=== PATIENT | male | born 1955 | race African-American/Black ===

== ENCOUNTER 2017-12-19 21:49 | Inpatient (IN) | payer OTHER, MEDICAID, MEDICARE ==
[~2017-12-19] VITALS: Ht 185.4 cm; Wt 128.7 kg
[~2017-12-19 21:49] MED LIST: GLUCTAB PO; LORTA5 PO; NAPR500 PO; [UNRECOGNIZED DRUG - OTHER]
[2017-12-19 22:12] VITALS: BP 143/56; PULSE 102; RESP 22; TEMP 98.3; O2SAT 77
[2017-12-19 22:30] VITALS: BP 133/77; PULSE 90; RESP 24; O2SAT 97
[2017-12-19] MEDS ORDERED: FUROSEMIDE 20 MG/2 ML VIAL IV PUSH ONE (22:45)
[2017-12-19] MEDS ORDERED: FUROSEMIDE 40 MG TAB PO ONE (23:15)
--- NOTE | 2017-12-19 23:27 | RADRPT ---
EXAM DATE/TIME: 12/19/2017 23:09 [place] COMPARISON: No previous studies available for comparison. INDICATIONS : Short of breath. MEDICAL HISTORY : Diabetes mellitus type II. Hypertension Hypercholesterolemia. SURGICAL HISTORY : None. ENCOUNTER: Initial ACUITY: 1 week PAIN SCORE: 0/10 LOCATION: Bilateral chest FINDINGS: Slight cardiomegaly seen. Lungs are clear. CONCLUSION: Slight cardiomegaly. Letty Duvall MD on December 19, 2017 at 23:25 Board Certified Radiologist. This report was verified electronically.
[2017-12-19 23:39] LABS: ALKALINE PHOSPHATASE 85 U/L (45-117); TOTAL BILIRUBIN ADULT 0.8 MG/DL (0.2-1.0); TOTAL PROTEIN 7.7 GM/DL (6.4-8.2); TROPONIN I 0.15 NG/ML (0.02-0.05)
[2017-12-19 23:50] LABS: ALBUMIN 3.2 GM/DL (3.4-5.0); ALT (GPT) 15 U/L (12-78); AST (GOT) 34 U/L (15-37); BICARBONATE 33.2 MEQ/L (21.0-32.0); BLOOD UREA NITROGEN 14 MG/DL (7-18); CHLORIDE 103 MEQ/L (98-107); CREATININE 1.16 MG/DL (0.60-1.30); GLOMERULAR FILTRATION RATE 77 ML/MIN (>89); GLUCOSE,RANDOM 84 MG/DL (74-106); SODIUM (NA) 139 MEQ/L (136-145)
[2017-12-20] VITALS: BP 134/79; PULSE 94; RESP 20; O2SAT 97
[2017-12-20 00:02] LABS: AUTOMATED NEUTROPHIL # 3.6 TH/MM3 (1.8-7.7); BASOPHIL % 0.9 % (0.0-2.0); EOSINOPHIL # 0.1 TH/MM3 (0-0.4); EOSINOPHIL % 1.3 % (0.0-4.0); HEMATOCRIT 34.5 % (39.0-51.0); HEMOGLOBIN 10.5 GM/DL (13.0-17.0); LYMPH % 19.9 % (9.0-44.0); LYMPHOCYTE # 1.1 TH/MM3 (1.0-4.8); MEAN CELL VOLUME 72.9 FL (80.0-100.0); MEAN CORPUSCULAR HEMOGLOBIN 22.3 PG (27.0-34.0); MEAN CORPUSCULAR HGB CONC 30.6 % (32.0-36.0); MEAN PLATELET VOLUME 9.6 FL (7.0-11.0); MONO % 12.2 % (0.0-8.0); MONOCYTE # 0.7 TH/MM3 (0-0.9); NEUT % 65.7 % (16.0-70.0); PLATELET COUNT 150 TH/MM3 (150-450); RED BLOOD COUNT 4.73 MIL/MM3 (4.50-5.90); RED CELL DISTRIBUTION WIDTH 22.2 % (11.6-17.2); WHITE BLOOD COUNT 5.5 TH/MM3 (4.0-11.0)
[2017-12-20 02:00] VITALS: BP 139/84; PULSE 92; RESP 16; O2SAT 96
[2017-12-20 03:15] LABS: BILIRUBIN, URINE NEG (NEG); BLOOD, URINE NEG (NEG); GLUCOSE,URINE NEG (NEG); KETONE, URINE NEG (NEG); MUCUS URINE FEW /lpf (OCC); NITRITE,URINE NEG (NEG); URINE COLOR LIGHT-YELLOW (YELLW/STRAW); URINE LEUKOCYTE ESTERASE NEG (NEG)
[2017-12-20] MEDS ORDERED: ASPIRIN 81 MG CHEW TAB CHEW ONE (03:30)
[2017-12-20] MEDS ORDERED: NALOXONE HCL 0.4 MG/ML AMP IV PUSH PRN (04:15)
[2017-12-20] MEDS ORDERED: SODIUM CHLORIDE 0.9% FLUSH 10 ML FLUSH IV FLUSH PRN (04:15)
--- NOTE | 2017-12-20 04:18 | PD ---
HPI Chief Complaint: Edema Time Seen by Provider: 22:17 Travel History International Travel<30 days: No Contact w/Intl Traveler<30days: No Traveled to known affect area: No History of Present Illness HPI Patient is a 62-year-old male. Patient comes in the ER complaining that he has had shortness of breath and swelling of his lower extremities. He has been on Lasix for years however when he went to the pharmacy to refill his 40 mg twice daily they said that his doctor would not refill it until he comes in to have more tests. Patient says he is on a fixed income and cannot afford to see the doctor but he can only barely afford his medications. For a week he has not taken any Lasix and he feels short of breath orthopnea he cannot lie flat his ankles he says are much more swollen and he is deciding at triage to 80% on room air. Patient is placed on 3 L nasal cannula and is satting 97 he is in no apparent distress when I enter the exam room [facility] Past Medical History Arthritis: Yes Autoimmune Disease: Yes (ARTHRITIS) Congestive Heart Failure: Yes Diabetes: Yes Patient Takes Glucophage: No Diminished Hearing: No Hypertension: Yes Past Surgical History Surgical History: No Previous Surgery Other Surgery: Yes Social History Alcohol Use: No Tobacco Use: No Substance Use: No Allergies-Medications (Allergen,Severity, Reaction): Coded Allergies: No Known Allergies (Verified Allergy, Unknown, 12/20/17) Reported Meds & Prescriptions Reported Meds & Active Scripts Active Naprosyn (Naproxen) 500 Mg Tab 500 Mg PO BIDPRN Lortab 5/325 Tab (Hydrocodone-Acetaminophen) 1 Tab Tab 1 Tab PO Q4-6HPRN Reported [Blodd Pressure Meds] Glucophage (Metformin HCl) 500 Mg Tab 1,000 Mg PO BID Review of Systems Except as stated in HPI: all other systems reviewed are Neg Cardiovascular: No: Chest Pain or Discomfort, Palpitations Respiratory: Positive: Shortness of Breath Physical Exam Narrative GENERAL: Patient is sitting upright seems to have orthopnea he has wheezing sound diffusely in all lung reynolds possible cardiac asthma SKIN: Warm and dry. HEAD: Atraumatic. Normocephalic. EYES: Pupils equal and round. No scleral icterus. No injection or drainage. ENT: No nasal bleeding or discharge. Mucous membranes pink and moist. NECK: Trachea midline. No JVD. CARDIOVASCULAR: Regular rate and rhythm. RESPIRATORY: No accessory muscle use. Clear to auscultation. Breath sounds equal bilaterally. GASTROINTESTINAL: Abdomen soft, non-tender, nondistended. Hepatic and splenic margins not palpable. MUSCULOSKELETAL: Extremities lower extremities have pedal edema 1+ bilateral.. NEUROLOGICAL: Awake and alert. No obvious cranial nerve deficits. Motor grossly within normal limits. Five out of 5 muscle strength in the arms and legs. Normal speech. PSYCHIATRIC: Appropriate mood and affect; insight and judgment normal. Data Data Last Documented VS Vital Signs Date Time Temp Pulse Resp B/P (MAP) Pulse Ox O2 Delivery O2 Flow Rate FiO2 12/20/17 02:00 92 16 139/84 (102) 96 Nasal Cannula 2.00 12/19/17 22:12 98.3 Orders Orders Complete Blood Count With Diff (12/19/17 22:33) Comprehensive Metabolic Panel (12/19/17 22:33) Troponin I (12/19/17 22:33) B-Type Natriuretic Peptide (12/19/17 22:33) Urinalysis - C+S If Indicated (12/19/17 22:33) Chest, Pa & Lat (12/19/17 22:33) Furosemide Inj (Lasix Inj) (12/19/17 22:45) Furosemide (Lasix) (12/19/17 23:15) Aspirin Chew (Aspirin Chew) (12/20/17 03:30) Troponin I (12/20/17 03:20) Admit Order (Ed Use Only) (12/20/17 04:05) Place In Observation (12/20/17 ) Vital Signs (Adult) Q4H (12/20/17 04:05) Activity Oob With Assistance (12/20/17 04:05) Adjunct Sociology Professor / Telemetry .CONTINUOUS (12/20/17 04:05) Intake + Output MELISSA.QSHIFT (12/20/17 04:05) Diet Heart Healthy (12/20/17 Breakfast) Sodium Chloride 0.9% Flush (Ns Flush) (12/20/17 04:15) Sodium Chloride 0.9% Flush (Ns Flush) (12/20/17 09:00) Basic Metabolic Panel (Bmp) (12/21/17 06:00) Complete Blood Count With Diff (12/21/17 06:00) Creatine Kinase (Cpk) (12/20/17 06:00) Creatine Kinase (Cpk) (12/20/17 12:00) Troponin I (12/20/17 06:00) Troponin I (12/20/17 12:00) Electrocardiogram (12/20/17 04:05) Electrocardiogram (12/20/17 10:05) Pt Request For Service (12/20/17 04:05) Case Management Consult (12/20/17 04:05) Naloxone Inj (Narcan Inj) (12/20/17 04:15) Echo 2d Comp With Doppler (12/20/17 ) Furosemide Inj (Lasix Inj) (12/20/17 09:00) Labs Laboratory Tests Test 12/19/17 23:00 12/19/17 23:50 12/20/17 02:30 12/20/17 03:38 Blood Urea Nitrogen 14 MG/DL Creatinine 1.16 MG/DL Random Glucose 84 MG/DL Total Protein 7.7 GM/DL Albumin 3.2 GM/DL Calcium Level 8.0 MG/DL Alkaline Phosphatase 85 U/L Aspartate Amino Transf (AST/SGOT) 34 U/L Alanine Aminotransferase (ALT/SGPT) 15 U/L Total Bilirubin 0.8 MG/DL Sodium Level 139 MEQ/L Potassium Level 5.3 MEQ/L Chloride Level 103 MEQ/L Carbon Dioxide Level 33.2 MEQ/L Anion Gap 3 MEQ/L Estimat Glomerular Filtration Rate 77 ML/MIN Troponin I 0.15 NG/ML White Blood Count 5.5 TH/MM3 Red Blood Count 4.73 MIL/MM3 Hemoglobin 10.5 GM/DL Hematocrit 34.5 % Mean Corpuscular Volume 72.9 FL Mean Corpuscular Hemoglobin 22.3 PG Mean Corpuscular Hemoglobin Concent 30.6 % Red Cell Distribution Width 22.2 % Platelet Count 150 TH/MM3 Mean Platelet Volume 9.6 FL Neutrophils (%) (Auto) 65.7 % Lymphocytes (%) (Auto) 19.9 % Monocytes (%) (Auto) 12.2 % Eosinophils (%) (Auto) 1.3 % Basophils (%) (Auto) 0.9 % Neutrophils # (Auto) 3.6 TH/MM3 Lymphocytes # (Auto) 1.1 TH/MM3 Monocytes # (Auto) 0.7 TH/MM3 Eosinophils # (Auto) 0.1 TH/MM3 Basophils # (Auto) 0.0 TH/MM3 CBC Comment DIFF FINAL Differential Comment B-Type Natriuretic Peptide 496 PG/ML Urine Color LIGHT-YELLOW Urine Turbidity CLEAR Urine pH 5.0 Urine Specific [place] 1.006 Urine Protein NEG mg/dL Urine Glucose (UA) NEG mg/dL Urine Ketones NEG mg/dL Urine Occult Blood NEG Urine Nitrite NEG Urine Bilirubin NEG Urine Urobilinogen LESS THAN 2.0 MG/DL Urine Leukocyte Esterase NEG Urine RBC LESS THAN 1 /hpf Urine WBC 1 /hpf Urine Mucus FEW /lpf Microscopic Urinalysis Comment CULT NOT INDICATED MDM Medical Decision Making Medical Screen Exam Complete: Yes Emergency Medical Condition: Yes Interpretation(s) Chest x-ray shows diffuse interstitial edema bilaterally with cephalization. EKG is normal sinus rhythm at a rate of 95 there is no ectopy and there is no ST segment elevations nor depressions Differential Diagnosis Differential diagnosis includes CHF versus COPD versus ischemic arrhythmia leading to flash pulmonary edema versus cardiac asthma versus bronchitis fluid overload versus failure Narrative Course Chest x-ray to ca appears to be diffuse interstitial edema. However the radiologist reads it as clear. His BNP is 495 patient is given 40 p.o. of Lasix and diuresis over a liter of urine over the next 3 hours. He is having CHF exacerbation he is admitted diuresed his troponin comes back at 0.15 possibly had an ischemic event that led to his arrhythmia that could have led to increased pulmonary edema Diagnosis Primary Impression: CHF (congestive heart failure) Qualified Codes: I50.9 - Heart failure, unspecified Additional Impression: Troponin level elevated Admitting Information Admitting Physician Requests: Admit Cam Hernández MD Dec 20, 2017 04:18
[2017-12-20] MEDS ORDERED: FURO1TAB62 PO (05:05)
[2017-12-20 07:30] VITALS: BP 142/81; PULSE 97; RESP 20; TEMP 98.3; O2SAT 96
[2017-12-20 07:36] LABS: TROPONIN I 0.14 NG/ML (0.02-0.05)
[2017-12-20] MEDS ORDERED: GABA300C5 PO (08:50)
[2017-12-20] MEDS ORDERED: AMLO10 PO (08:50)
[2017-12-20] MEDS ORDERED: LOVA40TA PO (08:50)
[2017-12-20] MEDS ORDERED: ZANT150T2 PO (08:50)
[2017-12-20] MEDS ORDERED: JANU50TA8 PO (08:50)
[2017-12-20] MEDS ORDERED: PERC10TA27 PO (08:50)
[2017-12-20] MEDS ORDERED: ASPI-516 PO (08:50)
[2017-12-20] MEDS ORDERED: LISI-515 PO (08:50)
[2017-12-20] MEDS: FUROSEMIDE 40 MG/4 ML VIAL IV PUSH SCH ×2 (08:53→17:00)
[2017-12-20] MEDS: SODIUM CHLORIDE 0.9% FLUSH 10 ML FLUSH IV FLUSH SCH ×2 (08:53→20:28)
[2017-12-20 10:25] VITALS: BP 138/85; PULSE 86; RESP 20; TEMP 97.8; O2SAT 97
[2017-12-20 12:54] LABS: TROPONIN I 0.14 NG/ML (0.02-0.05)
[2017-12-20 13:00] VITALS: BP 138/91; PULSE 93; RESP 18; TEMP 98.3; O2SAT 95
[2017-12-20] MEDS ORDERED: hydrALAZINE HCL 25 MG TAB PO PRN (14:15)
[2017-12-20] MEDS ORDERED: DEXTROSE 50% IN WATER 50 ML VIAL(D50) IV PUSH PRN (14:15)
[2017-12-20] MEDS ORDERED: RESP: ALBUTEROL 2.5 MG/IPRATROPIUM 0.5 MG NEB (PRN) NEB (14:15)
[2017-12-20] MEDS ORDERED: GLUCAGON 1 MG/ML VIAL OTHER PRN (14:15)
--- NOTE | 2017-12-20 14:23 | HHI.HP ---
[facility] Jacob Alcaraz MD Admission Diagnosis CHF Diagnoses: (1) Diabetes mellitus with neuropathy (2) Pain syndrome, chronic (3) Hyperkalemia (4) Diabetes mellitus, type 2 (5) Benign hypertension (6) Hyperlipidemia (7) CHF exacerbation (8) Troponin level elevated Chief Complaint: Shortness of breath along with increase weight along with bilateral lower extremity edema Travel History International Travel<30 Days: No Contact w/Intl Traveler <30 Da: No Traveled to Known Affected Are: No History of Present Illness 62-year-old male with a history of diabetes type 2, hypertension, hyperlipidemia, congestive heart failure recently to the ED for evaluation of worsening shortness of breath without any associated chest pain, severe bilateral lower extremities edema along with 10 pounds weight gain over the past 10 days. Patient also reports orthopnea. Patient states, is spinning out of his Lasix over the past 10 days. He endorses nonproductive cough. Currently denies any GI bleed Review of Systems Except as stated in HPI: all other systems reviewed are Neg Past Family Social History Past Medical History Diabetes type 2 Congestive heart failure Hyperlipidemia Hypertension Diabetic neuropathy Chronic pain syndrome Past Surgical History Hemorrhoidectomy Reported Medications See EMR Allergies: Coded Allergies: No Known Allergies (Verified Allergy, Unknown, 12/20/17) Family History History positive for diabetes type 2 Father from complication of CVA Mother from complication of [place] Social History He currently denies tobacco, alcohol or illicit drug intake Physical Exam Vital Signs Vital Signs Date Time Temp Pulse Resp B/P (MAP) Pulse Ox O2 Delivery O2 Flow Rate FiO2 12/20/17 10:25 97.8 86 20 138/85 (102) 97 Nasal Cannula 2.00 12/20/17 07:30 96 20 96 Nasal Cannula 2.00 12/20/17 07:30 98.3 97 20 142/81 (101) 96 Nasal Cannula 2.00 12/20/17 02:00 92 16 139/84 (102) 96 Nasal Cannula 2.00 12/20/17 00:00 94 20 134/79 (97) 97 Nasal Cannula 2.00 12/19/17 22:30 24 97 Nasal Cannula 2.00 12/19/17 22:30 90 24 133/77 (95) 97 Nasal Cannula 2.00 12/19/17 22:12 98.3 102 22 143/56 (85) 77 Physical Exam GENERAL: This is a well-nourished, well-developed patient, in no apparent distress. SKIN: No rashes, ecchymoses or lesions. Cool and dry. HEAD: Atraumatic. Normocephalic. No temporal or scalp tenderness. EYES: Pupils equal round and reactive. Extraocular motions intact. No scleral icterus. No injection or drainage. ENT: Nose without bleeding, purulent drainage or septal hematoma. Throat without erythema, tonsillar hypertrophy or exudate. Uvula midline. Airway patent. NECK: Trachea midline. No JVD or lymphadenopathy. Supple, nontender, no meningeal signs. CARDIOVASCULAR: Regular rate and rhythm without murmurs, gallops, or rubs. RESPIRATORY: Clear to auscultation. Breath sounds equal bilaterally. No wheezes , rales, or rhonchi. GASTROINTESTINAL: Abdomen soft, non-tender, nondistended. No hepato-splenomegaly , or palpable masses. No guarding. MUSCULOSKELETAL: Extremities without clubbing, cyanosis; +2 edema BLE. No joint tenderness, effusion, or edema noted. No calf tenderness. Negative Homans sign bilaterally. NEUROLOGICAL: Awake and alert. Cranial nerves II through XII intact. Motor and sensory grossly within normal limits. Five out of 5 muscle strength in all muscle groups. Normal speech. Laboratory Laboratory Tests Test 12/19/17 23:00 12/19/17 23:50 12/20/17 02:30 12/20/17 03:38 Blood Urea Nitrogen 14 Creatinine 1.16 Random Glucose 84 Total Protein 7.7 Albumin 3.2 Calcium Level 8.0 Alkaline Phosphatase 85 Aspartate Amino Transf (AST/SGOT) 34 Alanine Aminotransferase (ALT/SGPT) 15 Total Bilirubin 0.8 Sodium Level 139 Potassium Level 5.3 Chloride Level 103 Carbon Dioxide Level 33.2 Anion Gap 3 Estimat Glomerular Filtration Rate 77 Troponin I 0.15 0.15 White Blood Count 5.5 Red Blood Count 4.73 Hemoglobin 10.5 Hematocrit 34.5 Mean Corpuscular Volume 72.9 Mean Corpuscular Hemoglobin 22.3 Mean Corpuscular Hemoglobin Concent 30.6 Red Cell Distribution Width 22.2 Platelet Count 150 Mean Platelet Volume 9.6 Neutrophils (%) (Auto) 65.7 Lymphocytes (%) (Auto) 19.9 Monocytes (%) (Auto) 12.2 Eosinophils (%) (Auto) 1.3 Basophils (%) (Auto) 0.9 Neutrophils # (Auto) 3.6 Lymphocytes # (Auto) 1.1 Monocytes # (Auto) 0.7 Eosinophils # (Auto) 0.1 Basophils # (Auto) 0.0 CBC Comment DIFF FINAL Differential Comment B-Type Natriuretic Peptide 496 Urine Color LIGHT-YELLOW Urine Turbidity CLEAR Urine pH 5.0 Urine Specific [place] 1.006 Urine Protein NEG Urine Glucose (UA) NEG Urine Ketones NEG Urine Occult Blood NEG Urine Nitrite NEG Urine Bilirubin NEG Urine Urobilinogen LESS THAN 2.0 Urine Leukocyte Esterase NEG Urine RBC LESS THAN 1 Urine WBC 1 Urine Mucus FEW Microscopic Urinalysis Comment CULT NOT INDICATED Test 12/20/17 06:00 12/20/17 12:00 Total Creatine Kinase 100 106 Troponin I 0.14 0.14 Result Diagram: 12/19/17 2350 12/19/17 2300 Imaging Last Impressions Chest X-Ray 12/19/172232 Signed Impressions: Service Date/Time: December 23:09 - CONCLUSION: Slight cardiomegaly. Letty Duvall MD Septic Shock Reassessment Septic shock perfusion: reassessment completed Caprini VTE Risk Assessment Caprini VTE Risk Assessment: Mod/High Risk (score >= 2) Caprini Risk Assessment Model Point Value = 1 Point Value = 2 Point Value = 3 Point Value = 5 Age 41-60 Minor surgery BMI > 25 kg/m2 Swollen legs Varicose veins or History of unexplained or recurrent spontaneous Oral contraceptives or hormone replacement Sepsis (< 1 month) Serious lung disease, including pneumonia (< 1 month) Abnormal pulmonary function Acute myocardial infarction Congestive heart failure (< 1 month) History of inflammatory bowel disease Medical patient at bed rest Age 61-74 Arthroscopic surgery Major open surgery (> 45 min) Laparoscopic surgery (> 45 min) Malignancy Confined to bed (> 72 hours) Immobilizing plaster cast Central venous access Age >= 75 History of VTE Family history of VTE Factor V Leiden Prothrombin [id number] Lupus anticoagulant Anticardiolipin antibodies Elevated serum homocysteine Heparin-induced thrombocytopenia Other congenital or acquired thrombophilia Stroke (< 1 month) Elective arthroplasty Hip, pelvis, or leg fracture Acute spinal cord injury (< 1 month) Prophylaxis Regimen Total Risk Factor Score Risk Level Prophylaxis Regimen 0-1 Low Early ambulation 2 Moderate Order ONE of the following: *Sequential Compression Device (SCD) *Heparin 5000 units SQ BID 3-4 Higher Order ONE of the following medications: *Heparin 5000 units SQ TID *Enoxaparin/Lovenox 40 mg SQ daily (WT < 150 kg, CrCl > 30 mL/min) *Enoxaparin/Lovenox 30 mg SQ daily (WT < 150 kg, CrCl > 10-29 mL/min) *Enoxaparin/Lovenox 30 mg SQ BID (WT < 150 kg, CrCl > 30 mL/min) AND/OR *Sequential Compression Device (SCD) 5 or more Highest Order ONE of the following medications: *Heparin 5000 units SQ TID (Preferred with Epidurals) *Enoxaparin/Lovenox 40 mg SQ daily (WT < 150 kg, CrCl > 30 mL/min) *Enoxaparin/Lovenox 30 mg SQ daily (WT < 150 kg, CrCl > 10-29 mL/min) *Enoxaparin/Lovenox 30 mg SQ BID (WT < 150 kg, CrCl > 30 mL/min) AND *Sequential Compression Device (SCD) Assessment and Plan Problem List: (1) CHF exacerbation ICD Code: I50.9 - Heart failure, unspecified (2) Troponin level elevated ICD Code: R74.8 - Abnormal levels of other serum enzymes Status: Acute (3) Benign hypertension ICD Code: I10 - Essential (primary) hypertension (4) Hyperkalemia ICD Code: E87.5 - Hyperkalemia (5) Hyperlipidemia ICD Code: E78.5 - Hyperlipidemia, unspecified (6) Diabetes mellitus, type 2 ICD Code: E11.9 - Type 2 diabetes mellitus without complications (7) Diabetes mellitus with neuropathy ICD Code: E11.40 - Type 2 diabetes mellitus with diabetic neuropathy, unspecified (8) Pain syndrome, chronic ICD Code: G89.4 - Chronic pain syndrome Assessment and Plan 62-year-old man with Congestive heart failure exacerbation of unknown type Chest x-ray noted and review by me with slight cardiomyopathy Although elevated troponin I likely secondary to CHF exacerbation, will consult cardiology for further evaluation Continue with Lasix 40 mg IV every 12H, MICHAEL inhibitor pending repeat potassium, strict I's and O's, CHF education Check 2-D echo Nonischemic cardiomyopathy Will consult cardiology 2-D echo pending Continue outpatient medications Hyperkalemia Repeat potassium and treat for K>5.6 Diabetes type 2 Resume outpatient medication and start insulin sliding scale Check Hemoglobin A1c Hypertension, hyperlipidemia Resume outpatient medications Normochromic normocytic anemia H&H stable Recommend outpatient follow-up for preventative colonoscopy Chronic pain syndrome Resume Percocet DVT prophylaxis: Lovenox Code Status Full code Discussed Condition With Patient, Physician Certification 2 Midnight Certification Type: Admission for Inpatient Services Order for Inpatient Services The services are ordered in accordance with Medicare regulations or non- Medicare payer requirements, as applicable. In the case of services not specified as inpatient-only, they are appropriately provided as inpatient services in accordance with the 2-midnight benchmark. Estimated LOS (days): 2 days is the estimated time the patient will need to remain in the hospital, assuming treatment plan goals are met and no additional complications. Post-Hospital Plan: Not yet determined Ray Wilson MD Dec 20, 2017 14:23
[2017-12-20 16:34] VITALS: BP 144/84; PULSE 96; RESP 18; TEMP 97.6; O2SAT 92
[2017-12-20] MEDS: INSULIN ASPART SUPPLEMENTAL SCALE SQ SCH ×2 (16:58→20:27)
[2017-12-20] MEDS: GABAPENTIN 400 MG CAP PO SCH (17:01)
[2017-12-20] MEDS: oxyCODONE/ACETAMINOPHEN 10 MG/325 MG TAB PO PRN (17:02)
--- NOTE | 2017-12-20 17:44 | MB ---
cc: JACK PRATT MD DATE OF CONSULTATION: 12/20/2017. HISTORY OF PRESENT ILLNESS: Mr. Jalloh is a 62-year-old pleasant black male with a history of diabetes mellitus, hypertension, dyslipidemia and obesity. He has had a several day history of progressive dyspnea. He otherwise has had increased shortness of breath for many months. He also has had increased weight gain and lower extremity edema. He has had orthopnea and paroxysmal nocturnal dyspnea. He has not had any chest pain. He has mild cough. He has not had any palpitations, dizziness, lightheadedness or syncope. PAST MEDICAL HISTORY: His past medical history is positive for: 1. Diabetes. 2. Congestive heart failure. 3. Dyslipidemia. 4. Hypertension. 5. Diabetic neuropathy. 6. Chronic pain syndrome. 7. History of hemorrhoidectomy. MEDICATIONS: His medications include: 1. Lovastatin. 2. Amlodipine. 3. Lisinopril. 4. Aspirin. 5. Percocet. 6. Gabapentin. 7. Furosemide. 8. Zantac. 9. Janumet. ALLERGIES: NONE. SOCIAL HISTORY: The patient does not smoke. He does not drink alcohol. He is accompanied by his . He is a retired plasterer. FAMILY HISTORY: Family history is positive for heart disease in the mother and CVA in his father. PHYSICAL EXAMINATION: VITAL SIGNS: Blood pressure 144/84, pulse 96 and regular. HEAD, EYES, EARS, NOSE, THROAT: Negative. NECK: 2+ carotid upstrokes, no bruits. LUNGS: Clear. HEART: Regular with no murmurs, rubs or gallops. ABDOMEN: Abdomen soft. No bruits. EXTREMITIES: 2+ left lower extremity edema and 1+ distal pulses. NEUROLOGIC: Grossly nonfocal. EKGS: EKG was reviewed and showed normal sinus rhythm, PVCs, right axis, no acute changes. LABORATORY DATA: Hemoglobin 10.5, potassium 5.3, creatinine 1.16, troponin 0.15, 0.5, 0.14 and 0.14. CK is 100 and 106. AST 34. ALT 15. DIAGNOSIS:: 1. Acute exacerbation of chronic congestive heart failure. 2. Hypertension. 3. Diabetes mellitus. 4. Dyslipidemia. 5. Obesity. DISPOSITION: Mr. Jalloh will be treated for heart failure exacerbation with diuresis. We will also continue blood pressure control and modification of his cardiac risk factors. Will obtain echocardiogram to evaluate his left ventricular function. He has not had any angina. I will follow him for cardiology during his hospitalization. MD CHRISTINE Magana/JEAN PAUL /5:16 PM /5:30 PM LEANN
[2017-12-20] MEDS: FAMOTIDINE 20 MG TAB PO SCH (20:27)
[2017-12-21] VITALS (9 sets, daily range): BP systolic 115–135; BP diastolic 62–84; PULSE 88–101; RESP 17–20; TEMP 97.7–98.8; O2SAT 93–94
--- NOTE | 2017-12-21 00:02 | EKG ---
Date Performed: 12/20/2017 Time Performed: 03:54:21 PTAGE: 62 years EKG: Sinus rhythm WITH OCCASIONAL SUPRAVENTRICULAR PREMATURE COMPLEXES BORDERLINE RIGHT AXIS DEVIATION BORDERLINE ECG PREVIOUS TRACING : 02/09/2009 16.16 Since the prior tracing, there has been no significant soares DOCTOR: Sherry Pelaez Interpretating Date/Time 12/21/2017 00:01:05
[2017-12-21] MEDS: oxyCODONE/ACETAMINOPHEN 10 MG/325 MG TAB PO PRN ×3 (06:25→18:45)
[2017-12-21] MEDS: INSULIN ASPART SUPPLEMENTAL SCALE SQ SCH ×4 (08:00→22:01)
[2017-12-21 08:55] LABS: AUTOMATED NEUTROPHIL # 3.6 TH/MM3 (1.8-7.7); BASOPHIL # 0.1 TH/MM3 (0-0.2); BASOPHIL % 1.9 % (0.0-2.0); EOSINOPHIL # 0.1 TH/MM3 (0-0.4); EOSINOPHIL % 1.9 % (0.0-4.0); HEMATOCRIT 34.4 % (39.0-51.0); HEMOGLOBIN 10.3 GM/DL (13.0-17.0); LYMPH % 17.3 % (9.0-44.0); LYMPHOCYTE # 0.9 TH/MM3 (1.0-4.8); MEAN CELL VOLUME 72.7 FL (80.0-100.0); MEAN CORPUSCULAR HEMOGLOBIN 21.7 PG (27.0-34.0); MEAN PLATELET VOLUME 8.9 FL (7.0-11.0); MONO % 12.9 % (0.0-8.0); MONOCYTE # 0.7 TH/MM3 (0-0.9); PLATELET COUNT 159 TH/MM3 (150-450); RED BLOOD COUNT 4.74 MIL/MM3 (4.50-5.90); RED CELL DISTRIBUTION WIDTH 22.4 % (11.6-17.2); WHITE BLOOD COUNT 5.5 TH/MM3 (4.0-11.0)
[2017-12-21 09:01] LABS: MEAN CORPUSCULAR HGB CONC 29.8 % (32.0-36.0)
[2017-12-21 09:32] LABS: BICARBONATE 36.7 MEQ/L (21.0-32.0); BLOOD UREA NITROGEN 10 MG/DL (7-18); CALCIUM 8.4 MG/DL (8.5-10.1); CHLORIDE 95 MEQ/L (98-107); CHOLESTEROL 97 MG/DL (120-200); CHOLESTEROL/ HDL RATIO 2.69 RATIO; CREATININE 1.06 MG/DL (0.60-1.30); GLOMERULAR FILTRATION RATE 86 ML/MIN (>89); GLUCOSE,RANDOM 116 MG/DL (74-106); LDL CHOLESTEROL 43 MG/DL (0-99); SODIUM (NA) 138 MEQ/L (136-145); TRIGLYCERIDES 89 MG/DL (42-150)
[2017-12-21] MEDS: FUROSEMIDE 40 MG/4 ML VIAL IV PUSH SCH ×2 (09:39→17:41)
[2017-12-21] MEDS: SODIUM CHLORIDE 0.9% FLUSH 10 ML FLUSH IV FLUSH SCH ×2 (09:39→22:01)
[2017-12-21] MEDS: PRAVASTATIN SOD 40 MG TAB PO SCH (09:40)
[2017-12-21] MEDS: metFORMIN HCL 500 MG TAB PO SCH ×2 (09:40→17:41)
[2017-12-21] MEDS: FAMOTIDINE 20 MG TAB PO SCH ×2 (09:41→21:47)
[2017-12-21] MEDS: GABAPENTIN 400 MG CAP PO SCH ×3 (09:41→17:41)
[2017-12-21] MEDS: ASPIRIN 81 MG CHEW TAB PO SCH (09:41)
[2017-12-21] MEDS: LISINOPRIL 20 MG TAB PO SCH (09:42)
--- NOTE | 2017-12-21 14:37 | HHI.PR ---
Subjective Remarks Pt states breathing is much improved, swelling in lower ext also improved but still present. denies any CP/n/v Objective Vitals Vital Signs Date Time Temp Pulse Resp B/P (MAP) Pulse Ox O2 Delivery O2 Flow Rate FiO2 12/21/17 11:55 97.8 95 18 122/72 (89) 94 12/21/17 09:40 101 12/21/17 08:00 97.7 97 17 122/62 (82) 93 12/21/17 07:20 Nasal Cannula 2.50 12/21/17 05:00 98.3 88 20 125/74 (91) 94 12/21/17 03:40 99 12/21/17 00:45 98.8 95 18 132/84 (100) 94 12/20/17 16:34 97.6 96 18 144/84 (104) 92 I/O 12/20/17 12/20/17 12/20/17 12/21/17 12/21/17 12/21/17 07:00 15:00 23:00 07:00 15:00 23:00 Intake Total 400 ml 1000 ml 850 ml Output Total 1600 ml 3650 ml Balance -1600 ml -3250 ml 1000 ml 850 ml Intake Oral 400 ml 1000 ml 850 ml Output Urine Total 1600 ml 3650 ml # Voids 3 2 1 3 # Bowel Movements 0 0 0 Result Diagram: 12/21/17 0755 12/21/17 0755 Imaging Last Impressions Chest X-Ray 12/19/172232 Signed Impressions: Service Date/Time: December 23:09 - CONCLUSION: Slight cardiomegaly. K. Bobby Duvall MD Objective Remarks GENERAL: AA male, laying in bed, appears comfortable. ENT: Nose without drainage. Airway patent. NECK: Trachea midline. CARDIOVASCULAR: Regular rate and rhythm without murmurs RESPIRATORY: Clear to auscultation. Breath sounds equal bilaterally. No wheezes GASTROINTESTINAL: Abdomen soft, non-tender, nondistended. No guarding. MUSCULOSKELETAL: Extremities with +2 edema BLE. NEUROLOGICAL: Awake and alert. Motor and sensory grossly within normal limits. Normal speech. A/P Problem List: (1) CHF exacerbation ICD Code: I50.9 - Heart failure, unspecified (2) Troponin level elevated ICD Code: R74.8 - Abnormal levels of other serum enzymes Status: Acute (3) Benign hypertension ICD Code: I10 - Essential (primary) hypertension (4) Hyperkalemia ICD Code: E87.5 - Hyperkalemia (5) Hyperlipidemia ICD Code: E78.5 - Hyperlipidemia, unspecified (6) Diabetes mellitus, type 2 ICD Code: E11.9 - Type 2 diabetes mellitus without complications (7) Diabetes mellitus with neuropathy ICD Code: E11.40 - Type 2 diabetes mellitus with diabetic neuropathy, unspecified (8) Pain syndrome, chronic ICD Code: G89.4 - Chronic pain syndrome Assessment and Plan 62-year-old man with Congestive heart failure exacerbation of unknown type/ nonischemic cardiomyopathy Chest x-ray with slight cardiomyopathy elevated troponin likely secondary to CHF exacerbation, cardiology following Continue with Lasix 40 mg IV every 12H, MICHAEL inhibitor pending repeat potassium, strict I's and O's, CHF education, low sodium diet and fluid restriction at 1500ml/hr 2-D echo report pending. Hyperkalemia resolved. Diabetes type 2 Resume outpatient medication and start insulin sliding scale Hemoglobin A1c pending. Hypertension, hyperlipidemia on outpatient medications. Pt will need scripts upon discharge. Normochromic normocytic anemia H&H stable Recommend outpatient follow-up for preventative colonoscopy Chronic pain syndrome on Percocet DVT prophylaxis: Lovenox Discharge Planning continue medical management. low sodium diet, fluid restriction if improved, transition to po lasix in AM Laura Hart MD Dec 21, 2017 14:37
--- NOTE | 2017-12-21 14:47 | EKG ---
Date Performed: 12/20/2017 Time Performed: 11:55:30 PTAGE: 62 years EKG: Sinus rhythm WITH OCCASIONAL SUPRAVENTRICULAR PREMATURE COMPLEXES POSSIBLE LEFT ATRIAL ENLARGEMENT MARKED RIGHT A XIS DEVIATION ABNORMAL ECG Since PREVIOUS TRACING , no significant change noted PREVIOUS TRACIN12/20/2017 03.54 DOCTOR: Elio Martin Interpretating Date/Time 12/21/2017 14:46:05
--- NOTE | 2017-12-21 17:01 | ECHRPT ---
Indication: CHF CONCLUSIONS Normal left ventricular size. Wall thickness is normal. The left ventricular systolic function is normal with an estimated ejection fraction in the range of 60-65%. The right ventricle is severely dilated. The right ventricular systoilc function is moderately decreased. The right atrial size is moderately dilated. Mild mitral valve regurgitation. mild to moderate tricuspid valve regurgitiation, There is estimated mild pulmonary hypertension pres ent ( 41 mmHg). there appears to be flattening of the septum suggestive of pressure volume overload disproportionately greater than the measured rvsp of 41 mm hg, clinical correlation recommended BP: 139 / 84 HR: 92 Rhythm: MEASUREMENTS (Male / Female) Normal Values Technical Quality:Good 2D ECHO LV Diastolic Diameter PLAX 5.2 cm 4.2 - 5.9 / 3.9 - 5.3 cm LV Systolic Diameter PLAX 3.8 cm IVS Diastolic Thickness 1.2 cm 0.6 - 1.0 / 0.6 - 0.9 cm LVPW Diastolic Thickness 0.9 cm 0.6 - 1.0 / 0.6 - 0.9 cm LV Relative Wall Thickness 0.4 RV Internal Dim ED PLAX 2.9 cm LA Systolic Diameter LX 3.2 cm 3.0 - 4.0 / 2.7 - 3.8 cm M-MODE Aortic Root Diameter MM 3.5 cm AV Cusp Separation MM 2.0 cm DOPPLER AV Peak Velocity 208.0 cm/s AV Peak Gradient 17.3 mmHg Mitral E Point Velocity 75.7 cm/s Mitral A Point Velocity 111.0 cm/s Mitral E to A Ratio 0.7 TR Peak Velocity 320.0 cm/s TR Peak Gradient 41.0 mmHg FINDINGS LEFT VENTRICLE Normal left ventricular size. Wall thickness is normal. The left ventricular systolic function is normal with an estimated ejection fraction in the range of 60-65%. RIGHT VENTRICLE The right ventricle is severely dilated. The right ventricular systoilc function is moderately decreased. LEFT ATRIUM The left atrial size is normal. RIGHT ATRIUM The right atrial size is moderately dilated. ATRIAL SEPTUM Normal atrial septal thickness without atrial level shunting by limited color doppler interrogation. AORTA The aortic root and proximal ascending aorta are normal in size on limited imaging. MITRAL VALVE Mild mitral valve regurgitation. AORTIC VALVE Trileaflet aortic valve. No aortic valve stenosis or regurgitation. TRICUSPID VALVE There is estimated mild pulmonary hypertension present ( 41 mmHg). PULMONARY VALVE The pulmonary valve is not well visualized. VESSELS The inferior vena cava is normal in size. PERICARDIUM No pericardial effusion. Elio Martin MD, FACC, [facility] [place] (Electronically Signed) Final Date:21 December 2017 17:00
--- NOTE | 2017-12-21 19:34 | PD.CARD.PN ---
Subjective Subjective Remarks Still SOB and edematous, no CP, diuresing Objective Medications Current Medications Medications (Trade) Dose Ordered Sig/Walter Route Start Time Stop Time Status Last Admin (NS Flush) 2 ml UNSCH PRN IV FLUSH 12/20/17 04:15 (NS Flush) 2 ml BID IV FLUSH 12/20/17 09:00 12/21/17 09:39 (Narcan Inj) 0.4 mg UNSCH PRN IV PUSH 12/20/17 04:15 (Lasix Inj) 40 mg BID@18 IV PUSH 12/20/17 09:00 12/21/17 17:41 (D50w (Vial) Inj) 50 ml UNSCH PRN IV PUSH 12/20/17 14:15 (Glucagon Inj) 1 mg UNSCH PRN OTHER 12/20/17 14:15 (NovoLOG SUPPLEMENTAL SCALE) 1 ACHS SLIDING SCALE SQ 12/20/17 17:00 (Apresoline) 25 mg Q8HR PRN PO 12/20/17 14:15 (Duoneb Neb) 1 ampule Q2HR NEB PRN NEB 12/20/17 14:15 (Norvasc) 10 mg DAILY PO 12/21/17 09:00 12/21/17 09:41 (Aspirin Chew) 81 mg DAILY PO 12/21/17 09:00 12/21/17 09:41 (Prinivil) 20 mg DAILY PO 12/21/17 09:00 12/21/17 09:42 (Pravachol) 40 mg DAILY PO 12/21/17 09:00 12/21/17 09:40 (Percocet 10-325 Mg) 1 tab Q6H PRN PO 12/20/17 14:30 12/21/17 18:45 (Januvia) 25 mg BID@0900,1800 PO 12/21/17 09:00 12/21/17 17:41 (Pepcid) 20 mg BID PO 12/20/17 21:00 12/21/17 09:41 (Neurontin) 800 mg TID PO 12/20/17 18:00 12/21/17 17:41 (Glucophage) 500 mg BID@0900,1800 PO 12/21/17 09:00 12/21/17 17:41 Vital Signs / I&O Vital Signs Date Time Temp Pulse Resp B/P (MAP) Pulse Ox O2 Delivery O2 Flow Rate FiO2 12/21/17 16:19 97.8 92 18 115/69 (84) 93 12/21/17 11:55 97.8 95 18 122/72 (89) 94 12/21/17 09:40 101 12/21/17 08:00 97.7 97 17 122/62 (82) 93 12/21/17 07:20 Nasal Cannula 2.50 12/21/17 05:00 98.3 88 20 125/74 (91) 94 12/21/17 03:40 99 12/21/17 00:45 98.8 95 18 132/84 (100) 94 I/O 12/20/17 12/20/17 12/20/17 12/21/17 12/21/17 12/21/17 07:00 15:00 23:00 07:00 15:00 23:00 Intake Total 400 ml 1000 ml 850 ml Output Total 1600 ml 3650 ml Balance -1600 ml -3250 ml 1000 ml 850 ml Intake Oral 400 ml 1000 ml 850 ml Output Urine Total 1600 ml 3650 ml # Voids 3 2 1 3 # Bowel Movements 0 0 0 Physical Exam GENERAL: In NAD. SKIN: Warm and dry. HEAD: Normocephalic. EYES: No scleral icterus. No injection or drainage. NECK: Supple, trachea midline. No JVD or lymphadenopathy. CARDIOVASCULAR: Regular rate and rhythm without murmurs, gallops, or rubs. RESPIRATORY: Breath sounds decreased bilaterally. No accessory muscle use. GASTROINTESTINAL: Abdomen soft, non-tender, nondistended. MUSCULOSKELETAL: No cyanosis, 2+ edema. Laboratory Laboratory Tests Test 12/21/17 07:55 White Blood Count 5.5 TH/MM3 Red Blood Count 4.74 MIL/MM3 Hemoglobin 10.3 GM/DL Hematocrit 34.4 % Mean Corpuscular Volume 72.7 FL Mean Corpuscular Hemoglobin 21.7 PG Mean Corpuscular Hemoglobin Concent 29.8 % Red Cell Distribution Width 22.4 % Platelet Count 159 TH/MM3 Mean Platelet Volume 8.9 FL Neutrophils (%) (Auto) 66.0 % Lymphocytes (%) (Auto) 17.3 % Monocytes (%) (Auto) 12.9 % Eosinophils (%) (Auto) 1.9 % Basophils (%) (Auto) 1.9 % Neutrophils # (Auto) 3.6 TH/MM3 Lymphocytes # (Auto) 0.9 TH/MM3 Monocytes # (Auto) 0.7 TH/MM3 Eosinophils # (Auto) 0.1 TH/MM3 Basophils # (Auto) 0.1 TH/MM3 CBC Comment DIFF FINAL Differential Comment Blood Urea Nitrogen 10 MG/DL Creatinine 1.06 MG/DL Random Glucose 116 MG/DL Calcium Level 8.4 MG/DL Sodium Level 138 MEQ/L Potassium Level 3.9 MEQ/L Chloride Level 95 MEQ/L Carbon Dioxide Level 36.7 MEQ/L Anion Gap 6 MEQ/L Estimat Glomerular Filtration Rate 86 ML/MIN Triglycerides Level 89 MG/DL Cholesterol Level 97 MG/DL LDL Cholesterol 43 MG/DL HDL Cholesterol 36.0 MG/DL Cholesterol/HDL Ratio 2.69 RATIO Assessment and Plan Problem List: (1) CHF (congestive heart failure) ICD Codes: I50.9 - Heart failure, unspecified Status: Acute (2) Benign hypertension ICD Codes: I10 - Essential (primary) hypertension (3) Diabetes mellitus, type 2 ICD Codes: E11.9 - Type 2 diabetes mellitus without complications (4) Hyperlipidemia ICD Codes: E78.5 - Hyperlipidemia, unspecified (5) Troponin level elevated ICD Codes: R74.8 - Abnormal levels of other serum enzymes Status: Acute Assessment and Plan Echo w nl LV systolic fx, RV dilatation and hypokinesis. Continue current program including aggressive diuresis, closely monitor renal fx and electrolytes. Troponin slightly elevated but not trending. Recommend pulmonary evaluation. Increase activity. Problem Qualifiers (1) CHF (congestive heart failure): Qualified Codes: I50.9 - Heart failure, unspecified Sherry Pelaez MD Dec 21, 2017 19:34
[2017-12-22 00:27] VITALS: BP 118/64; PULSE 95; RESP 17; TEMP 98.3; O2SAT 93
[2017-12-22 04:51] VITALS: BP 118/65; PULSE 91; RESP 17; TEMP 97.9; O2SAT 94
[2017-12-22 08:00] VITALS: BP 115/76; PULSE 92; RESP 18; TEMP 98.1; O2SAT 92
[2017-12-22] MEDS: INSULIN ASPART SUPPLEMENTAL SCALE SQ SCH ×4 (08:00→22:31)
[2017-12-22] MEDS: metFORMIN HCL 500 MG TAB PO SCH (09:00)
[2017-12-22] MEDS: SODIUM CHLORIDE 0.9% FLUSH 10 ML FLUSH IV FLUSH SCH ×2 (09:00→22:25)
[2017-12-22 09:05] LABS: HEMOGLOBIN A1C 7.6 % (4.3-6.0)
[2017-12-22] MEDS: LISINOPRIL 20 MG TAB PO SCH (09:36)
[2017-12-22] MEDS: FAMOTIDINE 20 MG TAB PO SCH ×2 (09:36→22:25)
[2017-12-22] MEDS: GABAPENTIN 400 MG CAP PO SCH ×3 (09:36→18:29)
[2017-12-22] MEDS: ASPIRIN 81 MG CHEW TAB PO SCH (09:36)
[2017-12-22] MEDS: PRAVASTATIN SOD 40 MG TAB PO SCH (09:37)
[2017-12-22] MEDS: FUROSEMIDE 40 MG/4 ML VIAL IV PUSH SCH ×2 (09:38→18:25)
[2017-12-22] MEDS ORDERED: EUCERIN CREAM 120 GM JAR TOPICAL PRN (11:30)
[2017-12-22 12:00] VITALS: BP 111/63; PULSE 92; RESP 18; TEMP 97.8; O2SAT 92
[2017-12-22 12:07] LABS: BICARBONATE 39.9 MEQ/L (21.0-32.0); CALCIUM 8.2 MG/DL (8.5-10.1); CREATININE 1.04 MG/DL (0.60-1.30)
[2017-12-22] MEDS: oxyCODONE/ACETAMINOPHEN 10 MG/325 MG TAB PO PRN ×2 (12:48→18:33)
--- NOTE | 2017-12-22 15:08 | PD.CARD.PN ---
Subjective Subjective Remarks No CP, SOB improving, edema slowly improving Objective Medications Current Medications Medications (Trade) Dose Ordered Sig/Walter Route Start Time Stop Time Status Last Admin (NS Flush) 2 ml UNSCH PRN IV FLUSH 12/20/17 04:15 (NS Flush) 2 ml BID IV FLUSH 12/20/17 09:00 12/22/17 09:00 (Narcan Inj) 0.4 mg UNSCH PRN IV PUSH 12/20/17 04:15 (Lasix Inj) 40 mg BID@ IV PUSH 12/20/17 09:00 12/22/17 09:38 (D50w (Vial) Inj) 50 ml UNSCH PRN IV PUSH 12/20/17 14:15 (Glucagon Inj) 1 mg UNSCH PRN OTHER 12/20/17 14:15 (NovoLOG SUPPLEMENTAL SCALE) 1 ACHS SLIDING SCALE SQ 12/20/17 17:00 12/21/17 22:01 (Apresoline) 25 mg Q8HR PRN PO 12/20/17 14:15 (Duoneb Neb) 1 ampule Q2HR NEB PRN NEB 12/20/17 14:15 (Norvasc) 10 mg DAILY PO 12/21/17 09:00 12/22/17 09:37 (Aspirin Chew) 81 mg DAILY PO 12/21/17 09:00 12/22/17 09:36 (Prinivil) 20 mg DAILY PO 12/21/17 09:00 12/22/17 09:36 (Pravachol) 40 mg DAILY PO 12/21/17 09:00 12/22/17 09:37 (Percocet 10-325 Mg) 1 tab Q6H PRN PO 12/20/17 14:30 12/22/17 12:48 (Januvia) 25 mg BID@0900,1800 PO 12/21/17 09:00 12/22/17 09:44 (Pepcid) 20 mg BID PO 12/20/17 21:00 12/22/17 09:36 (Neurontin) 800 mg TID PO 12/20/17 18:00 12/22/17 12:42 (Glucophage) 500 mg BID@0900,1800 PO 12/21/17 09:00 12/21/17 17:41 (Eucerin Cream) 1 applic Q6H PRN TOPICAL 12/22/17 11:30 Vital Signs / I&O Vital Signs Date Time Temp Pulse Resp B/P (MAP) Pulse Ox O2 Delivery O2 Flow Rate FiO2 12/22/17 12:57 Nasal Cannula 2.50 12/22/17 12:00 97.8 92 18 111/63 (79) 92 12/22/17 08:00 98.1 92 18 115/76 (89) 92 12/22/17 04:51 97.9 91 17 118/65 (82) 94 12/22/17 00:27 98.3 95 17 118/64 (82) 93 12/21/17 20:30 Nasal Cannula 2.50 12/21/17 20:00 98.0 96 20 135/67 (89) 94 12/21/17 16:19 97.8 92 18 115/69 (84) 93 I/O 12/21/17 12/21/17 12/21/17 12/22/17 12/22/17 12/22/17 07:00 15:00 23:00 07:00 15:00 23:00 Intake Total 850 ml 240 ml Balance 850 ml 240 ml Intake Oral 850 ml 240 ml # Voids 3 2 # Bowel Movements 0 Physical Exam GENERAL: In NAD. SKIN: Warm and dry. HEAD: Normocephalic. EYES: No scleral icterus. No injection or drainage. NECK: Supple, trachea midline. No JVD or lymphadenopathy. CARDIOVASCULAR: Regular rate and rhythm without murmurs, gallops, or rubs. RESPIRATORY: Breath sounds decreased bilaterally. No accessory muscle use. GASTROINTESTINAL: Abdomen soft, non-tender, nondistended. MUSCULOSKELETAL: No cyanosis, 2+ edema. Laboratory Laboratory Tests Test 12/22/17 11:25 Blood Urea Nitrogen 9 MG/DL Creatinine 1.04 MG/DL Random Glucose 138 MG/DL Calcium Level 8.2 MG/DL Sodium Level 136 MEQ/L Potassium Level 4.0 MEQ/L Chloride Level 94 MEQ/L Carbon Dioxide Level 39.9 MEQ/L Anion Gap 2 MEQ/L Estimat Glomerular Filtration Rate 87 ML/MIN Assessment and Plan Problem List: (1) CHF (congestive heart failure) ICD Codes: I50.9 - Heart failure, unspecified Status: Acute (2) Benign hypertension ICD Codes: I10 - Essential (primary) hypertension (3) Diabetes mellitus, type 2 ICD Codes: E11.9 - Type 2 diabetes mellitus without complications (4) Hyperlipidemia ICD Codes: E78.5 - Hyperlipidemia, unspecified (5) Troponin level elevated ICD Codes: R74.8 - Abnormal levels of other serum enzymes Status: Acute Assessment and Plan Continuing improvement. Echo w nl LV systolic fx, RV dilatation and hypokinesis. Continue current program including aggressive diuresis, closely monitor renal fx and electrolytes (so far stable). I/O's inaccurate. Troponin slightly elevated but not trending. Recommend pulmonary evaluation (echo shows RV dysfx, enlargement, increased PAP). Increase activity, PT. Problem Qualifiers (1) CHF (congestive heart failure): Qualified Codes: I50.9 - Heart failure, unspecified Sherry Pelaez MD Dec 22, 2017 15:08
--- NOTE | 2017-12-22 15:33 | HHI.PR ---
Subjective Remarks Pt feels he is feeling better, SOB much improved, Swelling also improving but still edematous. No CP/n/v Objective Vitals Vital Signs Date Time Temp Pulse Resp B/P (MAP) Pulse Ox O2 Delivery O2 Flow Rate FiO2 12/22/17 12:57 Nasal Cannula 2.50 12/22/17 12:00 97.8 92 18 111/63 (79) 92 12/22/17 08:00 98.1 92 18 115/76 (89) 92 12/22/17 04:51 97.9 91 17 118/65 (82) 94 12/22/17 00:27 98.3 95 17 118/64 (82) 93 12/21/17 20:30 Nasal Cannula 2.50 12/21/17 20:00 98.0 96 20 135/67 (89) 94 12/21/17 16:19 97.8 92 18 115/69 (84) 93 I/O 12/21/17 12/21/17 12/21/17 12/22/17 12/22/17 12/22/17 07:00 15:00 23:00 07:00 15:00 23:00 Intake Total 850 ml 240 ml Balance 850 ml 240 ml Intake Oral 850 ml 240 ml # Voids 3 2 # Bowel Movements 0 Result Diagram: 12/21/17 0755 12/22/17 1125 Imaging Last Impressions Chest X-Ray 12/19/173 Signed Impressions: Service Date/Time: December 23:09 - CONCLUSION: Slight cardiomegaly. Letty Duvall MD Objective Remarks GENERAL: AA male, sitting on side of bed. pleasant ENT: Nose without drainage. Airway patent. NECK: Trachea midline. CARDIOVASCULAR: Regular rate and rhythm without murmurs RESPIRATORY: Clear to auscultation. Breath sounds equal bilaterally. No wheezes GASTROINTESTINAL: Abdomen soft, non-tender, nondistended. No guarding. MUSCULOSKELETAL: Extremities with +2 edema BLE but seems improved. NEUROLOGICAL: Awake and alert. Motor and sensory grossly within normal limits. Normal speech. A/P Problem List: (1) CHF exacerbation ICD Code: I50.9 - Heart failure, unspecified (2) Troponin level elevated ICD Code: R74.8 - Abnormal levels of other serum enzymes Status: Acute (3) Benign hypertension ICD Code: I10 - Essential (primary) hypertension (4) Hyperkalemia ICD Code: E87.5 - Hyperkalemia (5) Hyperlipidemia ICD Code: E78.5 - Hyperlipidemia, unspecified (6) Diabetes mellitus, type 2 ICD Code: E11.9 - Type 2 diabetes mellitus without complications (7) Diabetes mellitus with neuropathy ICD Code: E11.40 - Type 2 diabetes mellitus with diabetic neuropathy, unspecified (8) Pain syndrome, chronic ICD Code: G89.4 - Chronic pain syndrome Assessment and Plan 62-year-old man with Congestive heart failure exacerbation of unknown type/ nonischemic cardiomyopathy Chest x-ray with slight cardiomyopathy elevated troponin likely secondary to CHF exacerbation, cardiology following Continue with Lasix 40 mg IV every 12H, MICHAEL inhibitor, strict I's and O's, CHF education, low sodium diet and fluid restriction at 1500ml/hr 2-D echo report showed EF 60-65% however also shows RV dysfx, enlargement, increased PAP. will consult pulmonology for further recs. Hyperkalemia resolved. Diabetes type 2 on outpatient medication and on insulin sliding scale Hemoglobin A1c 7.6. Hypertension, hyperlipidemia on outpatient medications. Pt will need scripts upon discharge. Normochromic normocytic anemia H&H stable Recommend outpatient follow-up for preventative colonoscopy Chronic pain syndrome on Percocet DVT prophylaxis: Lovenox Discharge Planning continue medical management. low sodium diet, fluid restriction if improved, transition to po lasix in AM if ok w cards pulm consult RV dysfx, enlargement, increased PAP Laura Hart MD Dec 22, 2017 15:33
[2017-12-22] MEDS ORDERED: SITA100T PO (15:38)
[2017-12-22 16:00] VITALS: BP 114/64; PULSE 92; RESP 18; TEMP 97.9; O2SAT 95
[2017-12-22 20:00] VITALS: BP 118/66; PULSE 97; RESP 19; TEMP 97.7; O2SAT 93
[2017-12-23] VITALS (9 sets, daily range): BP systolic 110–120; BP diastolic 65–75; PULSE 64–99; RESP 17–19; TEMP 97.6–98.7; O2SAT 90–97
[2017-12-23] MEDS: oxyCODONE/ACETAMINOPHEN 10 MG/325 MG TAB PO PRN ×4 (05:53→22:58)
[2017-12-23] MEDS: INSULIN ASPART SUPPLEMENTAL SCALE SQ SCH ×4 (08:00→21:00)
[2017-12-23] MEDS ORDERED: SITAGLIPTIN METFORMIN PO SCH (09:00)
[2017-12-23] MEDS: SODIUM CHLORIDE 0.9% FLUSH 10 ML FLUSH IV FLUSH SCH ×2 (09:00→22:59)
[2017-12-23] MEDS: ASPIRIN 81 MG CHEW TAB PO SCH (09:25)
[2017-12-23] MEDS: GABAPENTIN 400 MG CAP PO SCH ×3 (09:25→17:41)
[2017-12-23] MEDS: PRAVASTATIN SOD 40 MG TAB PO SCH (09:25)
[2017-12-23] MEDS: LISINOPRIL 20 MG TAB PO SCH (09:25)
[2017-12-23] MEDS: FAMOTIDINE 20 MG TAB PO SCH ×2 (09:26→22:58)
[2017-12-23] MEDS: FUROSEMIDE 40 MG/4 ML VIAL IV PUSH SCH ×2 (09:27→17:41)
[2017-12-23 10:49] LABS: CALCIUM 8.8 MG/DL (8.5-10.1); CREATININE 1.16 MG/DL (0.60-1.30); MAGNESIUM 2.2 MG/DL (1.5-2.5)
[2017-12-23 10:50] LABS: BICARBONATE 41.4 MEQ/L (21.0-32.0)
--- NOTE | 2017-12-23 11:41 | HHI.PR ---
Subjective Remarks F/u CHF. Improving SOB but still with significant edema, On 4L uses 2L at night at home dw RN Objective Vitals Vital Signs Date Time Temp Pulse Resp B/P (MAP) Pulse Ox O2 Delivery O2 Flow Rate FiO2 12/23/17 10:59 95 Nasal Cannula 2.00 12/23/17 10:31 16 12/23/17 07:30 98.7 90 18 117/73 (88) 97 12/23/17 04:45 98.4 99 17 110/67 (81) 94 12/23/17 03:39 97 12/23/17 00:16 98.0 95 17 113/65 (81) 94 12/22/17 21:02 Nasal Cannula 2.50 12/22/17 20:00 97.7 97 19 118/66 (83) 93 12/22/17 16:00 97.9 92 18 114/64 (81) 95 12/22/17 12:57 Nasal Cannula 2.50 12/22/17 12:00 97.8 92 18 111/63 (79) 92 I/O 12/22/17 12/22/17 12/22/17 12/23/17 12/23/17 12/23/17 07:00 15:00 23:00 07:00 15:00 23:00 Intake Total 240 ml 960 ml 240 ml Balance 240 ml 960 ml 240 ml Intake Oral 240 ml 960 ml 240 ml # Voids 2 7 2 # Bowel Movements 0 Result Diagram: 12/21/17 0755 12/23/17 0918 Imaging Last Impressions Chest X-Ray 12/19/17 2233 Signed Impressions: Service Date/Time: December 23:09 - CONCLUSION: Slight cardiomegaly. Letty Duvall MD Objective Remarks GENERAL: AA male, sitting on side of bed. pleasant ENT: Nose without drainage. Airway patent. NECK: Trachea midline. CARDIOVASCULAR: Regular rate and rhythm without murmurs RESPIRATORY: Clear to auscultation. Breath sounds equal bilaterally. No wheezes GASTROINTESTINAL: Abdomen soft, non-tender, nondistended. No guarding. MUSCULOSKELETAL: Extremities with +2 edema NEUROLOGICAL: Awake and alert. Motor and sensory grossly within normal limits. Normal speech. Procedures none A/P Problem List: (1) CHF exacerbation ICD Code: I50.9 - Heart failure, unspecified (2) Troponin level elevated ICD Code: R74.8 - Abnormal levels of other serum enzymes Status: Acute (3) Benign hypertension ICD Code: I10 - Essential (primary) hypertension (4) Hyperkalemia ICD Code: E87.5 - Hyperkalemia (5) Hyperlipidemia ICD Code: E78.5 - Hyperlipidemia, unspecified (6) Diabetes mellitus, type 2 ICD Code: E11.9 - Type 2 diabetes mellitus without complications (7) Diabetes mellitus with neuropathy ICD Code: E11.40 - Type 2 diabetes mellitus with diabetic neuropathy, unspecified (8) Pain syndrome, chronic ICD Code: G89.4 - Chronic pain syndrome Assessment and Plan 62-year-old man with Congestive heart failure exacerbation of unknown type/ nonischemic cardiomyopathy Chest x-ray with slight cardiomyopathy elevated troponin likely secondary to CHF exacerbation, cardiology following Continue with Lasix 40 mg IV every 12H, MICHAEL inhibitor, strict I's and O's, CHF education, low sodium diet and fluid restriction at 1500ml/hr. Still with significant bilateral lower extremity swelling. Aldactone added. Will repeat BMP to monitor renal function in the morning 2-D echo report showed EF 60-65% however also shows RV dysfx, enlargement, increased PAP. will f/u consult pulmonology for further recs. Hyperkalemia resolved. Diabetes type 2 on outpatient medication and on insulin sliding scale Hemoglobin A1c 7.6. Hypertension, hyperlipidemia on outpatient medications. Pt will need scripts upon discharge. Normochromic normocytic anemia H&H stable Recommend outpatient follow-up for preventative colonoscopy Chronic pain syndrome on Percocet DVT prophylaxis: Lovenox Discharge Planning transition to po lasix in AM if pulm consult RV dysfx, enlargement, increased PAP Isauro Ramos MD Dec 23, 2017 11:41
--- NOTE | 2017-12-23 15:33 | PD.CARD.PN ---
Subjective Subjective Remarks No CP, SOB improved, still edematous Objective Medications Current Medications Medications (Trade) Dose Ordered Sig/Walter Route Start Time Stop Time Status Last Admin (NS Flush) 2 ml UNSCH PRN IV FLUSH 12/20/17 04:15 (NS Flush) 2 ml BID IV FLUSH 12/20/17 09:00 12/23/17 09:00 (Narcan Inj) 0.4 mg UNSCH PRN IV PUSH 12/20/17 04:15 (Lasix Inj) 40 mg BID@ IV PUSH 12/20/17 09:00 12/23/17 09:27 (D50w (Vial) Inj) 50 ml UNSCH PRN IV PUSH 12/20/17 14:15 (Glucagon Inj) 1 mg UNSCH PRN OTHER 12/20/17 14:15 (NovoLOG SUPPLEMENTAL SCALE) 1 ACHS SLIDING SCALE SQ 12/20/17 17:00 12/21/17 22:01 (Apresoline) 25 mg Q8HR PRN PO 12/20/17 14:15 (Duoneb Neb) 1 ampule Q2HR NEB PRN NEB 12/20/17 14:15 (Norvasc) 10 mg DAILY PO 12/21/17 09:00 12/23/17 09:25 (Aspirin Chew) 81 mg DAILY PO 12/21/17 09:00 12/23/17 09:25 (Prinivil) 20 mg DAILY PO 12/21/17 09:00 12/23/17 09:25 (Pravachol) 40 mg DAILY PO 12/21/17 09:00 12/23/17 09:25 (Percocet 10-325 Mg) 1 tab Q6H PRN PO 12/20/17 14:30 12/23/17 15:13 (Pepcid) 20 mg BID PO 12/20/17 21:00 12/23/17 09:26 (Neurontin) 800 mg TID PO 12/20/17 18:00 12/23/17 12:45 (Eucerin Cream) 1 applic Q6H PRN TOPICAL 12/22/17 11:30 12/23/17 09:28 Patient Own Medication PT OWN MED: SITAGLIPTIN-METFORMIN... DAILY PO 12/23/17 09:00 Future Hold Vital Signs / I&O Vital Signs Date Time Temp Pulse Resp B/P (MAP) Pulse Ox O2 Delivery O2 Flow Rate FiO2 12/23/17 12:00 98.1 74 18 116/65 (82) 95 12/23/17 10:59 95 Nasal Cannula 2.00 12/23/17 10:31 16 12/23/17 07:30 98.7 90 18 117/73 (88) 97 12/23/17 04:45 98.4 99 17 110/67 (81) 94 12/23/17 03:39 97 12/23/17 00:16 98.0 95 17 113/65 (81) 94 12/22/17 21:02 Nasal Cannula 2.50 12/22/17 20:00 97.7 97 19 118/66 (83) 93 12/22/17 16:00 97.9 92 18 114/64 (81) 95 I/O 12/22/17 12/22/17 12/22/17 12/23/17 12/23/17 12/23/17 06:59 14:59 22:59 06:59 14:59 22:59 Intake Total 240 ml 960 ml 240 ml Balance 240 ml 960 ml 240 ml Intake Oral 240 ml 960 ml 240 ml # Voids 2 7 2 # Bowel Movements 0 Physical Exam GENERAL: In NAD. SKIN: Warm and dry. HEAD: Normocephalic. EYES: No scleral icterus. No injection or drainage. NECK: Supple, trachea midline. No JVD or lymphadenopathy. CARDIOVASCULAR: Regular rate and rhythm without murmurs, gallops, or rubs. RESPIRATORY: Breath sounds decreased bilaterally. No accessory muscle use. GASTROINTESTINAL: Abdomen soft, non-tender, nondistended. MUSCULOSKELETAL: No cyanosis, 1-2+ edema. Laboratory Laboratory Tests Test 12/23/17 09:18 Blood Urea Nitrogen 11 MG/DL Creatinine 1.16 MG/DL Random Glucose 126 MG/DL Calcium Level 8.8 MG/DL Magnesium Level 2.2 MG/DL Sodium Level 135 MEQ/L Potassium Level 4.1 MEQ/L Chloride Level 89 MEQ/L Carbon Dioxide Level 41.4 MEQ/L Anion Gap 5 MEQ/L Estimat Glomerular Filtration Rate 77 ML/MIN Assessment and Plan Problem List: (1) CHF (congestive heart failure) ICD Codes: I50.9 - Heart failure, unspecified Status: Acute (2) Benign hypertension ICD Codes: I10 - Essential (primary) hypertension (3) Diabetes mellitus, type 2 ICD Codes: E11.9 - Type 2 diabetes mellitus without complications (4) Hyperlipidemia ICD Codes: E78.5 - Hyperlipidemia, unspecified (5) Troponin level elevated ICD Codes: R74.8 - Abnormal levels of other serum enzymes Status: Acute Assessment and Plan Overall improvement. Echo w nl LV systolic fx, RV dilatation and hypokinesis. Continue current program including aggressive diuresis, closely monitor renal fx and electrolytes. Troponin slightly elevated but not trending. Recommend pulmonary evaluation (echo shows RV dysfx, enlargement, increased PAP). Increase activity, PT. Problem Qualifiers (1) CHF (congestive heart failure): Qualified Codes: I50.9 - Heart failure, unspecified Sherry Pelaez MD Dec 23, 2017 15:33
[2017-12-23] MEDS: SPIRONOLACTONE 25 MG TAB PO SCH (17:41)
--- NOTE | 2017-12-23 20:45 | HHI.DCPOC ---
Discharge Care Plan Diagnosis: (1) CHF (congestive heart failure) Your Health Problems Are: Difficulty with ADL Exercise Tolerance Goals to Promote Your Health * To prevent worsening of your condition and complications * To maintain your health at the optimal level Directions to Meet Your Goals Take your medications as prescribed Follow your dietary instruction Follow activity as directed Keep your appointments as scheduled Take your immunizations and boosters as scheduled If your symptoms worsen call your PCP, if no PCP go to Urgent Care Center or Emergency Room Smoking is Dangerous to Your Health. Avoid second hand smoke Call the 24-hour hour crisis hotline for domestic abuse at Isauro Ramos MD Dec 23, 2017 20:45
--- NOTE | 2017-12-23 20:46 | HHI.FF ---
Face to Face Verification Diagnosis: (1) CHF exacerbation Physical Therapy Order: Evaluate and Treat, Improve ambulation, Strength and gait training Home Health Nursing Order: Medical education CHF education Oxygen administration education Medication education-adverse effect Nursing assessment with vital signs I have seen patient Mariusz Jalloh on 12/23/17. My clinical findings support the need for the requested home health care services because: Patient has SOB I certify that my clinical findings support that this patient is homebound because: Poor cardiac reserve Isauro Ramos MD Dec 23, 2017 20:46
[2017-12-23] MEDS ORDERED: WALKER WHEELS/F1 MIS (20:48)
[2017-12-24] VITALS (8 sets, daily range): BP systolic 104–129; BP diastolic 56–70; PULSE 75–103; RESP 18–20; TEMP 97.3–98.9; O2SAT 92–95
[2017-12-24] MEDS: INSULIN ASPART SUPPLEMENTAL SCALE SQ SCH ×4 (08:00→21:00)
[2017-12-24] MEDS: SODIUM CHLORIDE 0.9% FLUSH 10 ML FLUSH IV FLUSH SCH ×2 (09:07→21:20)
[2017-12-24] MEDS: PRAVASTATIN SOD 40 MG TAB PO SCH (09:08)
[2017-12-24] MEDS: GABAPENTIN 400 MG CAP PO SCH ×3 (09:09→17:53)
[2017-12-24] MEDS: LISINOPRIL 20 MG TAB PO SCH (09:10)
[2017-12-24] MEDS: SPIRONOLACTONE 25 MG TAB PO SCH ×2 (09:11→17:53)
[2017-12-24] MEDS: ASPIRIN 81 MG CHEW TAB PO SCH (09:11)
[2017-12-24] MEDS: FAMOTIDINE 20 MG TAB PO SCH ×2 (09:11→21:21)
[2017-12-24] MEDS: FUROSEMIDE 40 MG/4 ML VIAL IV PUSH SCH ×2 (09:11→17:52)
[2017-12-24 09:12] LABS: BICARBONATE 41.8 MEQ/L (21.0-32.0); CALCIUM 8.5 MG/DL (8.5-10.1); CREATININE 1.04 MG/DL (0.60-1.30); MAGNESIUM 2.2 MG/DL (1.5-2.5)
[2017-12-24] MEDS: oxyCODONE/ACETAMINOPHEN 10 MG/325 MG TAB PO PRN ×3 (09:21→21:21)
--- NOTE | 2017-12-24 14:37 | HHI.PR ---
Subjective Remarks Follow-up heart failure. States he is okay down to 2 L nasal cannula. Still with significant lower extremity swelling admits to noncompliance with Lasix when he ran out of medicine prior to admission. He has not been out of bed discussed with nursing to provide portable oxygen so patient can ambulate in the hallway. Objective Vitals Vital Signs Date Time Temp Pulse Resp B/P (MAP) Pulse Ox O2 Delivery O2 Flow Rate FiO2 12/24/17 12:03 98.9 75 18 115/61 (79) 93 12/24/17 10:43 102 12/24/17 09:22 2.00 12/24/17 08:00 98.8 94 18 129/63 (85) 95 12/24/17 05:45 97.3 95 20 105/60 (75) 94 12/24/17 01:00 98.4 98 19 104/56 (72) 94 12/23/17 21:15 97.6 64 19 118/75 (89) 96 12/23/17 19:00 Nasal Cannula 2.00 12/23/17 16:00 98.7 95 18 120/67 (84) 90 I/O 12/23/17 12/23/17 12/23/17 12/24/17 12/24/17 12/24/17 07:00 15:00 23:00 07:00 15:00 23:00 Intake Total 240 ml 1000 ml 1100 ml Output Total 1125 ml 2300 ml Balance 240 ml -125 ml -1200 ml Intake Oral 240 ml 1000 ml 1100 ml Output Urine Total 1125 ml 2300 ml # Voids 2 # Bowel Movements 0 0 Result Diagram: 12/21/17 0755 12/24/17 0739 Imaging Last Impressions Chest X-Ray 12/19/17 8073 Signed Impressions: Service Date/Time: December 23:09 - CONCLUSION: Slight cardiomegaly. Letty Duvall MD Objective Remarks GENERAL: AA male, sitting on side of bed. pleasant ENT: Nose without drainage. Airway patent. NECK: Trachea midline. CARDIOVASCULAR: Regular rate and rhythm without murmurs RESPIRATORY: Clear to auscultation. Breath sounds equal bilaterally. No wheezes GASTROINTESTINAL: Abdomen soft, non-tender, nondistended. No guarding. MUSCULOSKELETAL: Extremities with +2 edema NEUROLOGICAL: Awake and alert. Motor and sensory grossly within normal limits. Normal speech. Procedures none A/P Problem List: (1) CHF exacerbation ICD Code: I50.9 - Heart failure, unspecified (2) Troponin level elevated ICD Code: R74.8 - Abnormal levels of other serum enzymes Status: Acute (3) Benign hypertension ICD Code: I10 - Essential (primary) hypertension (4) Hyperkalemia ICD Code: E87.5 - Hyperkalemia (5) Hyperlipidemia ICD Code: E78.5 - Hyperlipidemia, unspecified (6) Diabetes mellitus, type 2 ICD Code: E11.9 - Type 2 diabetes mellitus without complications (7) Diabetes mellitus with neuropathy ICD Code: E11.40 - Type 2 diabetes mellitus with diabetic neuropathy, unspecified (8) Pain syndrome, chronic ICD Code: G89.4 - Chronic pain syndrome Assessment and Plan 62-year-old man with Congestive heart failure exacerbation of unknown type/ nonischemic cardiomyopathy. Still with significant edema and has not lost weight. Will give extra dose of IV Lasix 20 mg 1 today Chest x-ray with slight cardiomyopathy elevated troponin likely secondary to CHF exacerbation, cardiology following Continue with Lasix 40 mg IV every 12H, MICHAEL inhibitor, Aldactone, strict I's and O's, CHF education, low sodium diet and fluid restriction at 1500ml/hr.Will repeat BMP to monitor renal function in the morning 2-D echo report showed EF 60-65% however also shows RV dysfx, enlargement, increased PAP. will f/u consult pulmonology for further recs. Hyperkalemia resolved. Diabetes type 2 on outpatient medication and on insulin sliding scale Hemoglobin A1c 7.6. Hypertension, hyperlipidemia on outpatient medications. Pt will need scripts upon discharge. Normochromic normocytic anemia H&H stable Recommend outpatient follow-up for preventative colonoscopy Chronic pain syndrome on Percocet DVT prophylaxis: Lovenox Discharge Planning Consider transition to po lasix in AM pulm consult RV dysfx, enlargement, increased PAP Isauro Ramos MD Dec 24, 2017 14:37
[2017-12-24] MEDS ORDERED: MAGNESIUM HYDROXIDE SUSP 30 ML CUP PO PRN (14:45)
[2017-12-24] MEDS ORDERED: LACTULOSE SYRUP 20 GM/30 ML CUP PO PRN (14:45)
[2017-12-24] MEDS ORDERED: SENNOSIDES 8.6 MG TAB PO PRN (14:45)
[2017-12-24] MEDS ORDERED: BISACODYL 10 MG SUPP RECTAL PRN (14:45)
[2017-12-24] MEDS ORDERED: FUROSEMIDE 20 MG/2 ML VIAL IV PUSH ONE (15:00)
[2017-12-24] MEDS: DOCUSATE SODIUM 50 MG/SENNA 8.6 MG TAB PO SCH ×2 (15:57→21:21)
--- NOTE | 2017-12-24 16:03 | PD.CARD.PN ---
Subjective Subjective Remarks No CP, SOB improving Objective Medications Current Medications Medications (Trade) Dose Ordered Sig/Walter Route Start Time Stop Time Status Last Admin (NS Flush) 2 ml UNSCH PRN IV FLUSH 12/20/17 04:15 (NS Flush) 2 ml BID IV FLUSH 12/20/17 09:00 12/24/17 09:07 (Narcan Inj) 0.4 mg UNSCH PRN IV PUSH 12/20/17 04:15 (Lasix Inj) 40 mg BID@ IV PUSH 12/20/17 09:00 12/24/17 09:11 (D50w (Vial) Inj) 50 ml UNSCH PRN IV PUSH 12/20/17 14:15 (Glucagon Inj) 1 mg UNSCH PRN OTHER 12/20/17 14:15 (NovoLOG SUPPLEMENTAL SCALE) 1 ACHS SLIDING SCALE SQ 12/20/17 17:00 12/24/17 12:00 (Apresoline) 25 mg Q8HR PRN PO 12/20/17 14:15 (Duoneb Neb) 1 ampule Q2HR NEB PRN NEB 12/20/17 14:15 (Norvasc) 10 mg DAILY PO 12/21/17 09:00 12/24/17 09:11 (Aspirin Chew) 81 mg DAILY PO 12/21/17 09:00 12/24/17 09:11 (Prinivil) 20 mg DAILY PO 12/21/17 09:00 12/24/17 09:10 (Pravachol) 40 mg DAILY PO 12/21/17 09:00 12/24/17 09:08 (Percocet 10-325 Mg) 1 tab Q6H PRN PO 12/20/17 14:30 12/24/17 09:21 (Pepcid) 20 mg BID PO 12/20/17 21:00 12/24/17 09:11 (Neurontin) 800 mg TID PO 12/20/17 18:00 12/24/17 12:10 (Eucerin Cream) 1 applic Q6H PRN TOPICAL 12/22/17 11:30 12/23/17 09:28 Patient Own Medication PT OWN MED: SITAGLIPTIN-METFORMIN... DAILY PO 12/23/17 09:00 Future Hold (Aldactone) 25 mg BID@ PO 12/23/17 18:00 12/24/17 09:11 (Rhiannon-Colace) 1 tab BID PO 12/24/17 15:00 (Milk Of Magnesia Liq) 30 ml Q12H PRN PO 12/24/17 14:45 (Senokot) 17.2 mg Q12H PRN PO 12/24/17 14:45 (Dulcolax Supp) 10 mg DAILY PRN RECTAL 12/24/17 14:45 (Lactulose Liq) 30 ml DAILY PRN PO 12/24/17 14:45 Vital Signs / I&O Vital Signs Date Time Temp Pulse Resp B/P (MAP) Pulse Ox O2 Delivery O2 Flow Rate FiO2 12/24/17 12:03 98.9 75 18 115/61 (79) 93 12/24/17 10:43 102 12/24/17 09:22 2.00 12/24/17 08:00 98.8 94 18 129/63 (85) 95 12/24/17 05:45 97.3 95 20 105/60 (75) 94 12/24/17 01:00 98.4 98 19 104/56 (72) 94 12/23/17 21:15 97.6 64 19 118/75 (89) 96 12/23/17 19:00 Nasal Cannula 2.00 I/O 12/23/17 12/23/17 12/23/17 12/24/17 12/24/17 12/24/17 07:00 15:00 23:00 07:00 15:00 23:00 Intake Total 240 ml 1000 ml 1100 ml Output Total 1125 ml 2300 ml Balance 240 ml -125 ml -1200 ml Intake Oral 240 ml 1000 ml 1100 ml Output Urine Total 1125 ml 2300 ml # Voids 2 # Bowel Movements 0 0 Physical Exam GENERAL: In NAD. SKIN: Warm and dry. HEAD: Normocephalic. EYES: No scleral icterus. No injection or drainage. NECK: Supple, trachea midline. No JVD or lymphadenopathy. CARDIOVASCULAR: Regular rate and rhythm without murmurs, gallops, or rubs. RESPIRATORY: Breath sounds decreased bilaterally. No accessory muscle use. GASTROINTESTINAL: Abdomen soft, non-tender, nondistended. MUSCULOSKELETAL: No cyanosis, 1-2+ edema. Laboratory Laboratory Tests Test 12/24/17 07:39 Blood Urea Nitrogen 13 MG/DL Creatinine 1.04 MG/DL Random Glucose 92 MG/DL Calcium Level 8.5 MG/DL Magnesium Level 2.2 MG/DL Sodium Level 134 MEQ/L Potassium Level 3.9 MEQ/L Chloride Level 89 MEQ/L Carbon Dioxide Level 41.8 MEQ/L Anion Gap 3 MEQ/L Estimat Glomerular Filtration Rate 87 ML/MIN Assessment and Plan Problem List: (1) CHF (congestive heart failure) ICD Codes: I50.9 - Heart failure, unspecified Status: Acute (2) Benign hypertension ICD Codes: I10 - Essential (primary) hypertension (3) Diabetes mellitus, type 2 ICD Codes: E11.9 - Type 2 diabetes mellitus without complications (4) Hyperlipidemia ICD Codes: E78.5 - Hyperlipidemia, unspecified (5) Troponin level elevated ICD Codes: R74.8 - Abnormal levels of other serum enzymes Status: Acute Assessment and Plan Remains stable from cardiac standpoint. Echo w nl LV systolic fx, RV dilatation and hypokinesis. Continue current program including aggressive diuresis, closely monitor renal fx and electrolytes. Troponin slightly elevated but not trending. Recommend pulmonary evaluation (echo shows RV dysfx, enlargement, increased PAP). Increase activity, PT. Will schedule f/u in our office after discharge. Problem Qualifiers (1) CHF (congestive heart failure): Qualified Codes: I50.9 - Heart failure, unspecified Sherry Pelaez MD Dec 24, 2017 16:03
[2017-12-25] VITALS (9 sets, daily range): BP systolic 112–137; BP diastolic 55–74; PULSE 85–106; RESP 18–20; TEMP 97.7–98.4; O2SAT 91–96
[2017-12-25] MEDS: INSULIN ASPART SUPPLEMENTAL SCALE SQ SCH ×4 (08:00→21:00)
[2017-12-25] MEDS: SPIRONOLACTONE 25 MG TAB PO SCH ×2 (09:26→16:12)
[2017-12-25] MEDS: GABAPENTIN 400 MG CAP PO SCH ×3 (09:27→16:09)
[2017-12-25] MEDS: LISINOPRIL 20 MG TAB PO SCH (09:27)
[2017-12-25] MEDS: PRAVASTATIN SOD 40 MG TAB PO SCH (09:27)
[2017-12-25] MEDS: DOCUSATE SODIUM 50 MG/SENNA 8.6 MG TAB PO SCH ×2 (09:27→22:26)
[2017-12-25] MEDS: ASPIRIN 81 MG CHEW TAB PO SCH (09:27)
[2017-12-25] MEDS: FAMOTIDINE 20 MG TAB PO SCH ×2 (09:27→22:26)
[2017-12-25] MEDS: oxyCODONE/ACETAMINOPHEN 10 MG/325 MG TAB PO PRN ×3 (09:28→22:26)
[2017-12-25] MEDS: FUROSEMIDE 40 MG/4 ML VIAL IV PUSH SCH ×2 (09:28→16:10)
[2017-12-25] MEDS: SODIUM CHLORIDE 0.9% FLUSH 10 ML FLUSH IV FLUSH SCH ×2 (09:28→22:26)
[2017-12-25 09:48] LABS: BICARBONATE 42.5 MEQ/L (21.0-32.0); CALCIUM 8.9 MG/DL (8.5-10.1); CREATININE 1.04 MG/DL (0.60-1.30); MAGNESIUM 2.5 MG/DL (1.5-2.5)
[2017-12-25] MEDS ORDERED: IPRA17I INH (10:14)
--- NOTE | 2017-12-25 11:08 | HHI.PR ---
Subjective Remarks Follow-up heart failure. Still with significant lower extremity swelling. Decrease weight by 0.5 kg. Seen with . Discussed with pulmonary, hold discharge will obtain chest CT, PFTs and ABG. Objective Vitals Vital Signs Date Time Temp Pulse Resp B/P (MAP) Pulse Ox O2 Delivery O2 Flow Rate FiO2 12/25/17 10:37 16 12/25/17 08:05 97.8 90 19 119/74 (89) 91 12/25/17 08:03 106 12/25/17 04:00 98.2 95 18 126/63 (84) 93 12/25/17 00:00 98.1 85 18 122/68 (86) 95 12/24/17 20:00 97.8 93 18 107/70 (82) 93 12/24/17 19:00 Nasal Cannula 2.00 12/24/17 16:17 103 12/24/17 16:16 98.3 95 18 114/63 (80) 92 12/24/17 12:03 98.9 75 18 115/61 (79) 93 I/O 12/24/17 12/24/17 12/24/17 12/25/17 12/25/17 12/25/17 07:00 15:00 23:00 07:00 15:00 23:00 Intake Total 1100 ml 200 ml Output Total 2300 ml 3000 ml 1850 ml Balance -1200 ml -2800 ml -1850 ml Intake Oral 1100 ml 200 ml Output Urine Total 2300 ml 3000 ml 1850 ml # Bowel Movements 0 0 0 Result Diagram: 12/21/17 0755 12/25/17 0820 Objective Remarks GENERAL: AA male, sitting on side of bed. pleasant ENT: Nose without drainage. Airway patent. NECK: Trachea midline. CARDIOVASCULAR: Regular rate and rhythm without murmurs RESPIRATORY: Clear to auscultation. Breath sounds equal bilaterally. No wheezes GASTROINTESTINAL: Abdomen soft, non-tender, nondistended. No guarding. MUSCULOSKELETAL: Extremities with +2 edema NEUROLOGICAL: Awake and alert. Motor and sensory grossly within normal limits. Normal speech. Procedures none A/P Problem List: (1) CHF exacerbation ICD Code: I50.9 - Heart failure, unspecified (2) Troponin level elevated ICD Code: R74.8 - Abnormal levels of other serum enzymes Status: Acute (3) Benign hypertension ICD Code: I10 - Essential (primary) hypertension (4) Hyperkalemia ICD Code: E87.5 - Hyperkalemia (5) Hyperlipidemia ICD Code: E78.5 - Hyperlipidemia, unspecified (6) Diabetes mellitus, type 2 ICD Code: E11.9 - Type 2 diabetes mellitus without complications (7) Diabetes mellitus with neuropathy ICD Code: E11.40 - Type 2 diabetes mellitus with diabetic neuropathy, unspecified (8) Pain syndrome, chronic ICD Code: G89.4 - Chronic pain syndrome Assessment and Plan 62-year-old man with Congestive heart failure exacerbation of unknown type/ nonischemic cardiomyopathy. Still with edema and has not lost significant weight. Chest x-ray with slight cardiomyopathy elevated troponin likely secondary to CHF exacerbation, cardiology following Continue with Lasix 40 mg IV every 12H, MICHAEL inhibitor, Aldactone, strict I's and O's, CHF education, low sodium diet and fluid restriction at 1500ml/hr.Will repeat BMP to monitor renal function in the morning 2-D echo report showed EF 60-65% however also shows RV dysfx, enlargement, increased PAP. Discussed with pulmonary, obtain chest CT, PFTs and ABG Hyperkalemia resolved. Diabetes type 2 on outpatient medication and on insulin sliding scale Hemoglobin A1c 7.6. Hypertension, hyperlipidemia on outpatient medications. Pt will need scripts upon discharge. Normochromic normocytic anemia H&H stable Recommend outpatient follow-up for preventative colonoscopy Chronic pain syndrome on Percocet DVT prophylaxis: Lovenox Discharge Planning Consider transition to po lasix in AM Isauro Ramos MD Dec 25, 2017 11:07
[2017-12-25] MEDS ORDERED: IOHEXOL 350 MG/ML 10 ML VIAL (for RAD DIAG) IVCONTRAST ONE (15:05)
--- NOTE | 2017-12-25 15:16 | RADRPT ---
EXAM DATE/TIME: 12/25/2017 14:54 [facility] COMPARISON: No previous studies available for comparison. INDICATIONS : Shortness of breath IV CONTRAST: 71 cc Omnipaque 350 (iohexol) IV RADIATION DOSE: 23.38 CTDIvol (mGy) MEDICAL HISTORY : Congestive hearrt failure. Hypertension. Chronic obstructive pulmonary disease.Diabetes SURGICAL HISTORY : None. ENCOUNTER: Initial ACUITY: 1 day PAIN SCALE: 0/10 LOCATION: chest TECHNIQUE: Volumetric scanning of the chest was performed using a pulmonary embolism protocol MIP images were re constructed. Using automated exposure control and adjustment of the mA and/or kV according to patien t size, radiation dose was kept as low as reasonably achievable to obtain optimal diagnostic quality images. DICOM format image data is available electronically for review and comparison. Follow-up recommendations for detected pulmonary nodules are based at a minimum on nodule size and pa tient risk factors according to Fleischner Society Guidelines. FINDINGS: PULMONARY ARTERIES: No filling defects are seen in the pulmonary arteries through the segmental level. LUNGS: There are multiple small parenchymal and pleural-based lung nodules present bilaterally, most of them on the right side and largest measuring about a centimeter in size. There is mild patchy reticular i nterstitial thickening and ground glass parenchymal opacity. PLEURAE: There is no pleural thickening or pleural effusion. MEDIASTINUM: There is mild prominence of bilateral josephine are in mediastinal milan tissue which is nonspecific. Larg est mediastinal nodes exceed 15 mm in diameter. MUSCULOSKELETAL: Within normal limits for patient age. MISCELLANEOUS: The visualized upper abdominal organs demonstrate no acute abnormality. CONCLUSION: No evidence of pulmonary embolism. Multiple small bilateral pulmonary nodules. Mild prominence of hilar and mediastinal lymph nodes Mild diffuse parenchymal lung disease Jacob Jimenez MD on December 25, 2017 at 15:04 Board Certified Radiologist. This report was verified electronically.
[2017-12-25] MEDS: RESP: ALBUTEROL 2.5 MG/IPRATROPIUM 0.5 MG NEB (SCH) NEB ×2 (15:30→19:04)
--- NOTE | 2017-12-25 15:42 | PD.CARD.PN ---
Subjective Subjective Remarks No CP, mild SOB, still edematous, slow progress Objective Medications Current Medications Medications (Trade) Dose Ordered Sig/Walter Route Start Time Stop Time Status Last Admin (NS Flush) 2 ml UNSCH PRN IV FLUSH 12/20/17 04:15 (NS Flush) 2 ml BID IV FLUSH 12/20/17 09:00 12/25/17 09:28 (Narcan Inj) 0.4 mg UNSCH PRN IV PUSH 12/20/17 04:15 (Lasix Inj) 40 mg BID@ IV PUSH 12/20/17 09:00 12/25/17 09:28 (D50w (Vial) Inj) 50 ml UNSCH PRN IV PUSH 12/20/17 14:15 (Glucagon Inj) 1 mg UNSCH PRN OTHER 12/20/17 14:15 (NovoLOG SUPPLEMENTAL SCALE) 1 ACHS SLIDING SCALE SQ 12/20/17 17:00 12/25/17 12:10 (Apresoline) 25 mg Q8HR PRN PO 12/20/17 14:15 (Duoneb Neb) 1 ampule Q2HR NEB PRN NEB 12/20/17 14:15 (Norvasc) 10 mg DAILY PO 12/21/17 09:00 12/25/17 09:27 (Aspirin Chew) 81 mg DAILY PO 12/21/17 09:00 12/25/17 09:27 (Prinivil) 20 mg DAILY PO 12/21/17 09:00 12/25/17 09:27 (Pravachol) 40 mg DAILY PO 12/21/17 09:00 12/25/17 09:27 (Percocet 10-325 Mg) 1 tab Q6H PRN PO 12/20/17 14:30 12/25/17 09:28 (Pepcid) 20 mg BID PO 12/20/17 21:00 12/25/17 09:27 (Neurontin) 800 mg TID PO 12/20/17 18:00 12/25/17 12:10 (Eucerin Cream) 1 applic Q6H PRN TOPICAL 12/22/17 11:30 12/23/17 09:28 Patient Own Medication PT OWN MED: SITAGLIPTIN-METFORMIN... DAILY PO 12/23/17 09:00 Future Hold (Aldactone) 25 mg BID@ PO 12/23/17 18:00 12/25/17 09:26 (Rhiannon-Colace) 1 tab BID PO 12/24/17 15:00 12/25/17 09:27 (Milk Of Magnesia Liq) 30 ml Q12H PRN PO 12/24/17 14:45 (Senokot) 17.2 mg Q12H PRN PO 12/24/17 14:45 (Dulcolax Supp) 10 mg DAILY PRN RECTAL 12/24/17 14:45 (Lactulose Liq) 30 ml DAILY PRN PO 12/24/17 14:45 (Symbicort 160-4.5 Mcg Inh) 2 puff Q12HR INH 12/25/17 21:00 (Duoneb Neb) 1 ampule QID NEB NEB 12/25/17 16:00 12/25/17 15:30 Vital Signs / I&O Vital Signs Date Time Temp Pulse Resp B/P (MAP) Pulse Ox O2 Delivery O2 Flow Rate FiO2 12/25/17 15:30 91 Nasal Cannula 3.00 12/25/17 12:00 97.9 99 20 112/55 (74) 92 12/25/17 12:00 101 12/25/17 10:37 16 12/25/17 08:05 97.8 90 19 119/74 (89) 91 12/25/17 08:03 106 12/25/17 07:00 Nasal Cannula 2.00 12/25/17 04:00 98.2 95 18 126/63 (84) 93 12/25/17 00:00 98.1 85 18 122/68 (86) 95 12/24/17 20:00 97.8 93 18 107/70 (82) 93 12/24/17 19:00 Nasal Cannula 2.00 12/24/17 16:17 103 12/24/17 16:16 98.3 95 18 114/63 (80) 92 I/O 12/24/17 12/24/17 12/24/17 12/25/17 12/25/17 12/25/17 07:00 15:00 23:00 07:00 15:00 23:00 Intake Total 1100 ml 200 ml Output Total 2300 ml 3000 ml 2840 ml Balance -1200 ml -2800 ml -2840 ml Intake Oral 1100 ml 200 ml Output Urine Total 2300 ml 3000 ml 2840 ml # Bowel Movements 0 0 0 Physical Exam GENERAL: In NAD. SKIN: Warm and dry. HEAD: Normocephalic. EYES: No scleral icterus. No injection or drainage. NECK: Supple, trachea midline. No JVD or lymphadenopathy. CARDIOVASCULAR: Regular rate and rhythm without murmurs, gallops, or rubs. RESPIRATORY: Breath sounds decreased bilaterally. No accessory muscle use. GASTROINTESTINAL: Abdomen soft, non-tender, nondistended. MUSCULOSKELETAL: No cyanosis, 1-2+ LE edema. Laboratory Laboratory Tests Test 12/25/17 08:20 12/25/17 14:27 Blood Urea Nitrogen 14 MG/DL Creatinine 1.04 MG/DL Random Glucose 96 MG/DL Calcium Level 8.9 MG/DL Magnesium Level 2.5 MG/DL Sodium Level 135 MEQ/L Potassium Level 3.7 MEQ/L Chloride Level 88 MEQ/L Carbon Dioxide Level 42.5 MEQ/L Anion Gap 5 MEQ/L Estimat Glomerular Filtration Rate 87 ML/MIN Imaging Last [address] Angiography 12/25/17 1302 Signed Impressions: Service Date/Time: Saturday, December 25, 2017 14:54 - CONCLUSION: No evidence of pulmonary embolism. Multiple small bilateral pulmonary nodules. Mild prominence of hilar and mediastinal lymph nodes Mild diffuse parenchymal lung disease Jacob Jimenez MD Assessment and Plan Problem List: (1) CHF (congestive heart failure) ICD Codes: I50.9 - Heart failure, unspecified Status: Acute (2) Benign hypertension ICD Codes: I10 - Essential (primary) hypertension (3) Diabetes mellitus, type 2 ICD Codes: E11.9 - Type 2 diabetes mellitus without complications (4) Hyperlipidemia ICD Codes: E78.5 - Hyperlipidemia, unspecified (5) Troponin level elevated ICD Codes: R74.8 - Abnormal levels of other serum enzymes Status: Acute Assessment and Plan Slow progress, still very edematous, I/O's still quite inaccurate. Echo w nl LV systolic fx, RV dilatation and hypokinesis. Continue current program including aggressive diuresis, closely monitor renal fx and electrolytes. Troponin slightly elevated but not trending. Pulmonary evaluation (echo shows RV dysfx, enlargement, increased PAP). H/o smoking. Increase activity, PT. Will schedule f /u in our office after discharge. Problem Qualifiers (1) CHF (congestive heart failure): Qualified Codes: I50.9 - Heart failure, unspecified Sherry Pelaez MD Dec 25, 2017 15:42
--- NOTE | 2017-12-25 20:13 | MB ---
cc: JOHN,QUAN RAMOS,JACK GARCIA DATE OF CONSULTATION: 12/25/2017 REASON FOR CONSULTATION: Respiratory distress and right-sided heart failure. HISTORY OF PRESENT ILLNESS: This is a 61-year-old -[place] Citizen obese male with a history of hypertension, diabetes mellitus type 2, hyperlipidemia and CHF, was admitted via the emergency room with progressive shortness of breath, increasing leg edema and orthopnea. The patient apparently has gained weight and was retaining fluid and thus was seen in the emergency room and admitted. He was given IV diuretics and has been on oxygen via nasal cannula at 3 liters. He also has home oxygen at 3 liters. The patient has been coughing but does not bring up any sputum. Denied hemoptysis and denied chest pains but has some epigastric pains and reflux. He has had no leg or calf muscle pains and no nausea or vomiting. PAST HISTORY 1. History of diabetes mellitus type 2. 2. History of hypertension. 3. Hyperlipidemia. 4. History of CHF and peripheral neuropathy. 5. History of chronic back pain. 6. Hemorrhoidectomy in the past. 7. History of COPD and pneumonia. ALLERGIES: None listed. HABITS: The patient smoked one to two packs per day for over 35 years and then quit. Alcohol use, occasional. He lives with his . FAMILY HISTORY: Noncontributory. There is a history of hypertension, stroke and diabetes. SYSTEM REVIEW: The patient has gained weight. He has a history of snoring and possible apnea. He has wheezing and cough, orthopnea. He has epigastric distress and reflux. Urinary frequency. No hematuria. He has had leg swelling and joint pain of the extremities. Trouble ambulating. Some anxiety. PHYSICAL EXAMINATION: This is a moderately obese, middle aged -[place] Citizen male who is awake. Face is plethoric. VITAL SIGNS: Blood pressure 130/80, pulse 90, respiratory rate 22, temperature 98.2. HEENT: Normocephalic. Pupils are reactive and equal. Tongue is moist. Nasal mucosa erythematous. Throat is injected. NECK: Supple. No bruits or thyroid enlargement. No lymphadenopathy. There is mild venous distension at 45 degrees. CHEST: Equal movements, percussion note resonant throughout. Breath sounds diminished at the periphery with occasional wheezes throughout both lung reynolds. Prolonged expirations. HEART: Heart sounds are irregular. S1-S2 with no murmur, no S3. ABDOMEN: Obese, protuberant without masses. No organomegaly or tenderness. Bowel sounds are active. EXTREMITIES: Edema 2+ with varicose veins. No calf tenderness. Reflexes are 1+ with no gross motor deficits. Cranial nerves grossly intact. SKIN: Skin was dry and cool. IMAGING STUDIES: Chest x-ray demonstrated mild increase in vascular markings and cardiomyopathy. BMP is unremarkable. CBC shows hemoglobin of 10.5. White count is normal. IMPRESSION 1. COPD with chronic bronchitis and acute exacerbation. 2. CHF with cardiomyopathy. 3. Cor pulmonale. 4. History of hypertension. 5. Diabetes mellitus type 2. 6. Possible obstructive sleep apnea syndrome. 7. Bibasilar atelectasis. 8. Rule out pulmonary emboli. PLAN The patient will be sent for CT angiography of the chest to evaluate him for pulmonary emboli and/or nodules. He will also be sent for complete pulmonary function studies with bronchodilator. He will be placed on DuoNeb solution with a nebulizer q.i.d. He will be started on Levaquin 750 mg IV daily for exacerbation of COPD, also placed on Solu-Medrol 40 mg IV every 8 hours, Symbicort 160 x 4.5, two puffs twice daily was added and the patient may require BiPap at night and a sleep study will be arranged as an outpatient to evaluate him for sleep apnea, Lovenox prophylaxis to be given daily and suggested weight loss. Thank you Dr. Ramos and Dr. Pelaez for this consultation. MD NADINE Win/LETITIA /5:29 PM /7:10 PM
[2017-12-25] MEDS: LEVOFLOXACIN 750 MG PREMIX INJ 150 ML IV SCH (22:26)
[2017-12-25] MEDS: BUDESONIDE-FORMOTEROL 160/4.5 MCG INHALER INH SCH (22:26)
[2017-12-25] MEDS: methylPREDNISolone SOD SUCC 40 MG/1 ML VIAL IV PUSH SCH (22:27)
[2017-12-26] VITALS (11 sets, daily range): BP systolic 68–138; BP diastolic 64–92; PULSE 84–108; RESP 18–20; TEMP 98–98.4; O2SAT 91–98
[2017-12-26] MEDS: methylPREDNISolone SOD SUCC 40 MG/1 ML VIAL IV PUSH SCH ×2 (06:25→22:04)
[2017-12-26] MEDS: oxyCODONE/ACETAMINOPHEN 10 MG/325 MG TAB PO PRN ×3 (06:25→22:05)
[2017-12-26] MEDS: SPIRONOLACTONE 25 MG TAB PO SCH ×2 (08:10→16:33)
[2017-12-26] MEDS: PRAVASTATIN SOD 40 MG TAB PO SCH (08:11)
[2017-12-26] MEDS: ASPIRIN 81 MG CHEW TAB PO SCH (08:11)
[2017-12-26] MEDS: FAMOTIDINE 20 MG TAB PO SCH ×2 (08:11→22:04)
[2017-12-26] MEDS: DOCUSATE SODIUM 50 MG/SENNA 8.6 MG TAB PO SCH ×2 (08:11→22:05)
[2017-12-26] MEDS: GABAPENTIN 400 MG CAP PO SCH ×3 (08:12→16:33)
[2017-12-26] MEDS: SODIUM CHLORIDE 0.9% FLUSH 10 ML FLUSH IV FLUSH SCH ×2 (08:12→22:06)
[2017-12-26] MEDS: LISINOPRIL 20 MG TAB PO SCH (08:12)
[2017-12-26] MEDS: BUDESONIDE-FORMOTEROL 160/4.5 MCG INHALER INH SCH ×2 (08:13→22:06)
[2017-12-26] MEDS: FUROSEMIDE 40 MG/4 ML VIAL IV PUSH SCH ×2 (08:13→16:34)
[2017-12-26] MEDS: INSULIN ASPART SUPPLEMENTAL SCALE SQ SCH ×4 (08:14→21:51)
[2017-12-26] MEDS: RESP: ALBUTEROL 2.5 MG/IPRATROPIUM 0.5 MG NEB (SCH) NEB (09:55)
[2017-12-26] MEDS ORDERED: RESP: ALBUTEROL 0.63 MG/3 ML NEB (PRN) NEB (11:45)
[2017-12-26] MEDS ORDERED: INSULIN DETEMIR 100 UNITS/ML VIAL SQ ONE (11:45)
--- NOTE | 2017-12-26 11:45 | HHI.PR ---
Subjective Remarks F/U CHF. Improving shortness of breath and leg edema. Patient hyperglycemic on IV steroids of metformin secondary to patient receiving contrast. Discussed with nursing, decreased nebulization secondary to tremors Objective Vitals Vital Signs Date Time Temp Pulse Resp B/P (MAP) Pulse Ox O2 Delivery O2 Flow Rate FiO2 12/26/17 09:55 92 Nasal Cannula 3.00 12/26/17 09:20 Nasal Cannula 2.00 12/26/17 08:44 106 12/26/17 07:54 98.2 92 20 114/74 (87) 93 12/26/17 05:27 98.0 94 18 135/78 (97) 95 12/26/17 01:15 98.0 84 18 126/74 (91) 98 12/25/17 21:06 97.7 87 18 137/71 (93) 96 12/25/17 19:00 Nasal Cannula 3.00 12/25/17 17:06 18 12/25/17 15:49 87 12/25/17 15:40 98.4 91 20 124/64 (84) 95 12/25/17 15:30 91 Nasal Cannula 3.00 12/25/17 12:00 97.9 99 20 112/55 (74) 92 12/25/17 12:00 101 I/O 12/25/17 12/25/17 12/25/17 12/26/17 12/26/17 12/26/17 07:00 15:00 23:00 07:00 15:00 23:00 Intake Total 237 ml Output Total 2840 ml 1750 ml 300 ml 1050 ml Balance -2840 ml -1750 ml -63 ml -1050 ml Intake Oral 237 ml Output Urine Total 2840 ml 1750 ml 300 ml 1050 ml # Bowel Movements 0 Result Diagram: 12/25/17 [address] Angiography 12/25/17 1302 Signed Impressions: Service Date/Time: Monday, December 25, 2017 14:54 - CONCLUSION: No evidence of pulmonary embolism. Multiple small bilateral pulmonary nodules. Mild prominence of hilar and mediastinal lymph nodes Mild diffuse parenchymal lung disease Jacob Jimenez MD Chest X-Ray 12/19/17 9515 Signed Impressions: Service Date/Time: December 23:09 - CONCLUSION: Slight cardiomegaly. Letty Duvall MD Objective Remarks GENERAL: AA male, sitting on side of bed. pleasant ENT: Nose without drainage. Airway patent. NECK: Trachea midline. CARDIOVASCULAR: Regular rate and rhythm without murmurs RESPIRATORY: Clear to auscultation. Breath sounds equal bilaterally. No wheezes GASTROINTESTINAL: Abdomen soft, non-tender, nondistended. No guarding. MUSCULOSKELETAL: Extremities with improving +2 edema NEUROLOGICAL: Awake and alert. Motor and sensory grossly within normal limits. Normal speech. Mild tremors Procedures none A/P Problem List: (1) CHF exacerbation ICD Code: I50.9 - Heart failure, unspecified (2) Troponin level elevated ICD Code: R74.8 - Abnormal levels of other serum enzymes Status: Acute (3) Benign hypertension ICD Code: I10 - Essential (primary) hypertension (4) Hyperkalemia ICD Code: E87.5 - Hyperkalemia (5) Hyperlipidemia ICD Code: E78.5 - Hyperlipidemia, unspecified (6) Diabetes mellitus, type 2 ICD Code: E11.9 - Type 2 diabetes mellitus without complications (7) Diabetes mellitus with neuropathy ICD Code: E11.40 - Type 2 diabetes mellitus with diabetic neuropathy, unspecified (8) Pain syndrome, chronic ICD Code: G89.4 - Chronic pain syndrome Assessment and Plan 62-year-old man with Congestive heart failure exacerbation of unknown type/ nonischemic cardiomyopathy. Improving Chest x-ray with slight cardiomyopathy elevated troponin likely secondary to CHF exacerbation, cardiology following Continue with Lasix 40 mg IV every 12H, MICHAEL inhibitor, Aldactone, strict I's and O's, CHF education, low sodium diet and fluid restriction at 1500ml/hr. Will repeat BMP to monitor renal function in the morning 2-D echo report showed EF 60-65% however also shows RV dysfx, enlargement, increased PAP. COPD exac, Cor pulmonale and possible KI. Continue Levaquin, nebulization, steroids and BiPAP. Will need outpatient sleep study for CPAP. PFTs per pulmonary Tremors likely adverse reaction from with diabetes. Decrease nebulizer dose. Hyperkalemia resolved. Diabetes type 2. Uncontrolled 2/2 steroids. Levemir 10 units x 1. restart Janumet in am if renal function WNL s/p contrast 12/25 on outpatient medication and on insulin sliding scale Hemoglobin A1c 7.6. Hypertension, hyperlipidemia on outpatient medications. Pt will need scripts upon discharge. Normochromic normocytic anemia H&H stable Recommend outpatient follow-up for preventative colonoscopy Chronic pain syndrome on Percocet DVT prophylaxis: Lovenox Discharge Planning Consider transition to po lasix in AM Isauro Ramos MD Dec 26, 2017 11:45
[2017-12-26] MEDS: RESP: ALBUTEROL 0.63 MG/3 ML NEB (SCH) NEB ×3 (12:00→19:23)
[2017-12-26] MEDS: RESP: IPRATROPIUM 0.5 MG/2.5 ML NEB NEB SCH ×3 (12:00→19:23)
[2017-12-26 12:34] LABS: BICARBONATE 37.8 MEQ/L (21.0-32.0); CALCIUM 8.5 MG/DL (8.5-10.1); CREATININE 1.3 MG/DL (0.60-1.30); MAGNESIUM 2.2 MG/DL (1.5-2.5)
--- NOTE | 2017-12-26 13:10 | HHI.PR ---
Subjective Remarks He is on O2 at 4 L. BiPAP at HS. Will need home BiPAP but needs Sleep test as OP. On IV Steroids. Objective Vital Signs Date Time Temp Pulse Resp B/P (MAP) Pulse Ox O2 Delivery O2 Flow Rate FiO2 12/26/17 12:51 98.2 105 20 138/92 (107) 92 12/26/17 09:55 92 Nasal Cannula 3.00 12/26/17 09:20 Nasal Cannula 2.00 12/26/17 08:44 106 12/26/17 07:54 98.2 92 20 114/74 (87) 93 12/26/17 05:27 98.0 94 18 135/78 (97) 95 12/26/17 01:15 98.0 84 18 126/74 (91) 98 12/25/17 21:06 97.7 87 18 137/71 (93) 96 12/25/17 19:00 Nasal Cannula 3.00 12/25/17 17:06 18 12/25/17 15:49 87 12/25/17 15:40 98.4 91 20 124/64 (84) 95 12/25/17 15:30 91 Nasal Cannula 3.00 I/O 12/25/17 12/25/17 12/25/17 12/26/17 12/26/17 12/26/17 07:00 15:00 23:00 07:00 15:00 23:00 Intake Total 237 ml Output Total 2840 ml 1750 ml 300 ml 1050 ml Balance -2840 ml -1750 ml -63 ml -1050 ml Intake Oral 237 ml Output Urine Total 2840 ml 1750 ml 300 ml 1050 ml # Bowel Movements 0 Result Diagram: 12/26/17 1130 Objective Remarks This is a moderately obese, middle aged -[place] male who is awake. Face is plethoric.. HEENT: Normocephalic. Pupils are reactive and equal. Tongue is moist. Nasal mucosa clear. Throat is clear NECK: Supple. No bruits or thyroid enlargement. No lymphadenopathy. There is mild venous distension at 45 degrees. CHEST: Equal movements, percussion note resonant throughout. Breath sounds diminished at the periphery with occasional wheezes throughout both lung reynolds. Prolonged expirations. HEART: Heart sounds are irregular. S1-S2 with no murmur, no S3. ABDOMEN: Obese, protuberant without masses. No organomegaly or tenderness. Bowel sounds are active. EXTREMITIES: Edema 2+ with varicose veins. No calf tenderness. Reflexes are 1+ with no gross motor deficits. Cranial nerves grossly intact. SKIN: Skin was dry and cool. Assessment and Plan Assessment and Plan . IMPRESSION 1. COPD with chronic bronchitis and acute exacerbation. 2. CHF with cardiomyopathy. 3. Cor pulmonale. 4. History of hypertension. 5. Diabetes mellitus type 2. 6. Possible obstructive sleep apnea syndrome. 7. Bibasilar atelectasis. 8. Rule out pulmonary emboli. 9. Lung nodules Plan : 1. O2 at 3 L. 2. Will Arrange sleep study as OP 3. Taper solumedrol to 40 mg bid. 4. Cont Antibiotics for 1 week 5. PFT in am 6. Arrange Home CPAP soon 7. Cont Bennie beltre. Rena Scott MD Dec 26, 2017 13:10
--- NOTE | 2017-12-26 13:16 | PD.CARD.PN ---
Subjective Subjective Remarks No CP, less SOB, edema improving Objective Medications Current Medications Medications (Trade) Dose Ordered Sig/Walter Route Start Time Stop Time Status Last Admin (NS Flush) 2 ml UNSCH PRN IV FLUSH 12/20/17 04:15 (NS Flush) 2 ml BID IV FLUSH 12/20/17 09:00 12/26/17 08:12 (Narcan Inj) 0.4 mg UNSCH PRN IV PUSH 12/20/17 04:15 (Lasix Inj) 40 mg BID@ IV PUSH 12/20/17 09:00 12/26/17 08:13 (D50w (Vial) Inj) 50 ml UNSCH PRN IV PUSH 12/20/17 14:15 (Glucagon Inj) 1 mg UNSCH PRN OTHER 12/20/17 14:15 (NovoLOG SUPPLEMENTAL SCALE) 1 ACHS SLIDING SCALE SQ 12/20/17 17:00 12/26/17 08:14 (Apresoline) 25 mg Q8HR PRN PO 12/20/17 14:15 (Norvasc) 10 mg DAILY PO 12/21/17 09:00 12/26/17 08:11 (Aspirin Chew) 81 mg DAILY PO 12/21/17 09:00 12/26/17 08:11 (Prinivil) 20 mg DAILY PO 12/21/17 09:00 12/26/17 08:12 (Pravachol) 40 mg DAILY PO 12/21/17 09:00 12/26/17 08:11 (Percocet 10-325 Mg) 1 tab Q6H PRN PO 12/20/17 14:30 12/26/17 06:25 (Pepcid) 20 mg BID PO 12/20/17 21:00 12/26/17 08:11 (Neurontin) 800 mg TID PO 12/20/17 18:00 12/26/17 08:12 (Eucerin Cream) 1 applic Q6H PRN TOPICAL 12/22/17 11:30 12/23/17 09:28 Patient Own Medication PT OWN MED: SITAGLIPTIN-METFORMIN... DAILY PO 12/23/17 09:00 Future Hold (Aldactone) 25 mg BID@ PO 12/23/17 18:00 12/26/17 08:10 (Rhiannon-Colace) 1 tab BID PO 12/24/17 15:00 12/26/17 08:11 (Milk Of Magnesia Liq) 30 ml Q12H PRN PO 12/24/17 14:45 (Senokot) 17.2 mg Q12H PRN PO 12/24/17 14:45 (Dulcolax Supp) 10 mg DAILY PRN RECTAL 12/24/17 14:45 (Lactulose Liq) 30 ml DAILY PRN PO 12/24/17 14:45 (Symbicort 160-4.5 Mcg Inh) 2 puff Q12HR INH 12/25/17 21:00 12/26/17 08:13 Levofloxacin/ Dextrose 150 ml @ 100 mls/hr Q24H IV 12/25/17 20:00 12/25/17 22:26 (Albuterol Neb) 0.63 mg QID NEB NEB 12/26/17 12:00 (Albuterol Neb) 0.63 mg Q4HR NEB PRN NEB 12/26/17 11:45 (Atrovent Neb) 0.5 mg QID NEB NEB 12/26/17 12:00 Vital Signs / I&O Vital Signs Date Time Temp Pulse Resp B/P (MAP) Pulse Ox O2 Delivery O2 Flow Rate FiO2 12/26/17 12:51 98.2 105 20 138/92 (107) 92 12/26/17 09:55 92 Nasal Cannula 3.00 12/26/17 09:20 Nasal Cannula 2.00 12/26/17 08:44 106 12/26/17 07:54 98.2 92 20 114/74 (87) 93 12/26/17 05:27 98.0 94 18 135/78 (97) 95 12/26/17 01:15 98.0 84 18 126/74 (91) 98 12/25/17 21:06 97.7 87 18 137/71 (93) 96 12/25/17 19:00 Nasal Cannula 3.00 12/25/17 17:06 18 12/25/17 15:49 87 12/25/17 15:40 98.4 91 20 124/64 (84) 95 12/25/17 15:30 91 Nasal Cannula 3.00 I/O 12/25/17 12/25/17 12/25/17 12/26/17 12/26/17 12/26/17 07:00 15:00 23:00 07:00 15:00 23:00 Intake Total 237 ml Output Total 2840 ml 1750 ml 300 ml 1050 ml Balance -2840 ml -1750 ml -63 ml -1050 ml Intake Oral 237 ml Output Urine Total 2840 ml 1750 ml 300 ml 1050 ml # Bowel Movements 0 Physical Exam GENERAL: In NAD. SKIN: Warm and dry. HEAD: Normocephalic. EYES: No scleral icterus. No injection or drainage. NECK: Supple, trachea midline. No JVD or lymphadenopathy. CARDIOVASCULAR: Regular rate and rhythm without murmurs, gallops, or rubs. RESPIRATORY: Breath sounds decreased bilaterally. No accessory muscle use. GASTROINTESTINAL: Abdomen soft, non-tender, nondistended. MUSCULOSKELETAL: No cyanosis, 1-2+ LE edema. Laboratory Laboratory Tests Test 12/25/17 14:27 12/26/17 11:30 Blood Gas Puncture Site LT RADIAL Blood Gas Patient Temperature 98.6 Blood Gas HCO3 43 mmol/L Blood Gas Base Excess 16.9 mmol/L Blood Gas Oxygen Saturation 84 % Arterial Blood pH 7.35 Arterial Blood Partial Pressure CO2 80 mmHg Arterial Blood Partial Pressure O2 59 mmHg Arterial Blood Oxygen Content 12.0 Vol % Arterial Blood Carboxyhemoglobin 2.9 % Arterial Blood Methemoglobin 1.0 % Blood Gas Hemoglobin 10.1 G/DL Oxygen Delivery Device NASAL CANNULA Blood Gas Liter Flow 3 L/M Blood Gas Ventilator Setting Blood Gas Inspired Oxygen % Blood Urea Nitrogen 13 MG/DL Creatinine 1.30 MG/DL Random Glucose 366 MG/DL Calcium Level 8.5 MG/DL Magnesium Level 2.2 MG/DL Sodium Level 130 MEQ/L Potassium Level 4.2 MEQ/L Chloride Level 86 MEQ/L Carbon Dioxide Level 37.8 MEQ/L Anion Gap 6 MEQ/L Estimat Glomerular Filtration Rate 68 ML/MIN Assessment and Plan Problem List: (1) CHF (congestive heart failure) ICD Codes: I50.9 - Heart failure, unspecified Status: Acute (2) Benign hypertension ICD Codes: I10 - Essential (primary) hypertension (3) Diabetes mellitus, type 2 ICD Codes: E11.9 - Type 2 diabetes mellitus without complications (4) Hyperlipidemia ICD Codes: E78.5 - Hyperlipidemia, unspecified (5) Troponin level elevated ICD Codes: R74.8 - Abnormal levels of other serum enzymes Status: Acute (6) COPD (chronic obstructive pulmonary disease) ICD Codes: J44.9 - Chronic obstructive pulmonary disease, unspecified Assessment and Plan Dx w COPD exacerbation. Pulm eval and mgmt in progress. Echo w nl LV systolic fx , RV dilatation and hypokinesis. Continue current program including aggressive diuresis, closely monitor renal fx and electrolytes. Troponin slightly elevated but not trending. Increase activity, PT. Will schedule f/u appt in our office after discharge. Problem Qualifiers (1) CHF (congestive heart failure): Qualified Codes: I50.9 - Heart failure, unspecified Sherry Pelaez MD Dec 26, 2017 13:16
[2017-12-26] MEDS ORDERED: AMLO10 PO (14:38)
[2017-12-26] MEDS ORDERED: LISI-515 PO (14:38)
[2017-12-26] MEDS ORDERED: FURO1TAB62 PO (14:38)
[2017-12-26] MEDS ORDERED: NEUR400C PO (14:38)
[2017-12-26] MEDS ORDERED: SPIR25 PO (14:38)
[2017-12-26] MEDS ORDERED: LEVA750T9 PO (14:38)
[2017-12-26] MEDS ORDERED: VENTAER INH (14:38)
[2017-12-26] MEDS ORDERED: Budeson-Formot 160-4.5 Mcg Inh INH (14:38)
[2017-12-26] MEDS ORDERED: PRED20 PO (14:38)
[2017-12-26] MEDS ORDERED: D5-1/2 NS + KCL 10 MEQ INJ 1,000 ML IV SCH (20:15)
[2017-12-26] MEDS ORDERED: NS + KCL 20 MEQ INJ 1,000 ML IV SCH (20:15)
[2017-12-26] MEDS: LEVOFLOXACIN 750 MG PREMIX INJ 150 ML IV SCH (22:06)
[2017-12-27] VITALS (7 sets, daily range): BP systolic 110–138; BP diastolic 70–82; PULSE 85–95; RESP 18–20; TEMP 97.9–98.3; O2SAT 89–96
--- NOTE | 2017-12-27 07:16 | RADRPT ---
EXAM DATE/TIME: 12/27/2017 06:20 [facility] COMPARISON: CT PULMONARY ANGIOGRAM, December 25, 2017, 14:54. CHEST PA & LAT, December 19, 2017, 23:09. INDICATIONS : Short of breath, evaluate infiltrate MEDICAL HISTORY : Diabetes mellitus type II. Hypertension SURGICAL HISTORY : None. ENCOUNTER: Subsequent ACUITY: 1 week PAIN SCORE: Non-responsive. LOCATION: Bilateral chest FINDINGS: Portable AP view of the chest demonstrates cardiac silhouette size at the upper limits for normal. Ellen ngs are underinflated with mild bibasilar opacity. No pleural effusion or pneumothorax is identified. The bones and soft tissues demonstrate no acute finding. CONCLUSION: Underinflation with mild bibasilar opacity representing either atelectasis or mild consolidation. Jacob Watson MD on December 27, 2017 at 7:10 Board Certified Radiologist. This report was verified electronically.
[2017-12-27] MEDS: RESP: IPRATROPIUM 0.5 MG/2.5 ML NEB NEB SCH ×3 (07:39→15:08)
[2017-12-27] MEDS: INSULIN ASPART SUPPLEMENTAL SCALE SQ SCH ×2 (07:43→12:23)
[2017-12-27] MEDS: oxyCODONE/ACETAMINOPHEN 10 MG/325 MG TAB PO PRN ×2 (07:49→13:58)
[2017-12-27] MEDS: FAMOTIDINE 20 MG TAB PO SCH (07:50)
[2017-12-27] MEDS: PRAVASTATIN SOD 40 MG TAB PO SCH (07:50)
[2017-12-27] MEDS: ASPIRIN 81 MG CHEW TAB PO SCH (07:50)
[2017-12-27] MEDS: LISINOPRIL 20 MG TAB PO SCH (07:50)
[2017-12-27] MEDS: GABAPENTIN 400 MG CAP PO SCH ×2 (07:51→12:24)
[2017-12-27] MEDS: SODIUM CHLORIDE 0.9% FLUSH 10 ML FLUSH IV FLUSH SCH (07:51)
[2017-12-27] MEDS: DOCUSATE SODIUM 50 MG/SENNA 8.6 MG TAB PO SCH (07:51)
[2017-12-27] MEDS: SPIRONOLACTONE 25 MG TAB PO SCH (07:51)
[2017-12-27] MEDS: FUROSEMIDE 40 MG/4 ML VIAL IV PUSH SCH (07:52)
[2017-12-27] MEDS: methylPREDNISolone SOD SUCC 40 MG/1 ML VIAL IV PUSH SCH (07:52)
[2017-12-27] MEDS: BUDESONIDE-FORMOTEROL 160/4.5 MCG INHALER INH SCH (07:52)
[2017-12-27 08:02] LABS: INTERNATIONAL NORMALIZED RATIO 1.2 RATIO; PROTHROMBIN TIME - PATIENT 12.2 SEC (9.8-11.6)
[2017-12-27 08:27] LABS: BICARBONATE 41.3 MEQ/L (21.0-32.0); CREATININE 0.98 MG/DL (0.60-1.30); MAGNESIUM 2.4 MG/DL (1.5-2.5)
[2017-12-27] MEDS ORDERED: INSULIN DETEMIR 100 UNITS/ML VIAL SQ STA (12:55)
--- NOTE | 2017-12-27 13:01 | HHI.DS ---
Discharge Summary Admission Date Dec 20, 2017 at 05:16 Discharge Date: Dec 27, 2017 Admitting Diagnosis CHF (1) CHF exacerbation ICD Code: I50.9 - Heart failure, unspecified Diagnosis: Principal (2) Troponin level elevated ICD Code: R74.8 - Abnormal levels of other serum enzymes Diagnosis: Principal Status: Acute (3) Benign hypertension ICD Code: I10 - Essential (primary) hypertension Diagnosis: Principal (4) Hyperkalemia ICD Code: E87.5 - Hyperkalemia Diagnosis: Principal (5) Hyperlipidemia ICD Code: E78.5 - Hyperlipidemia, unspecified Diagnosis: Principal (6) Diabetes mellitus, type 2 ICD Code: E11.9 - Type 2 diabetes mellitus without complications Diagnosis: Principal (7) Diabetes mellitus with neuropathy ICD Code: E11.40 - Type 2 diabetes mellitus with diabetic neuropathy, unspecified Diagnosis: Principal (8) Pain syndrome, chronic ICD Code: G89.4 - Chronic pain syndrome Diagnosis: Principal Procedures none Brief History - From Admission 62-year-old male with a history of diabetes type 2, hypertension, hyperlipidemia, congestive heart failure recently to the ED for evaluation of worsening shortness of breath without any associated chest pain, severe bilateral lower extremities edema along with 10 pounds weight gain over the past 10 days. Patient also reports orthopnea. Patient states, is spinning out of his Lasix over the past 10 days. He endorses nonproductive cough. Currently denies any GI bleed CBC/BMP: 12/27/17 0710 Significant Findings Laboratory Tests Test 12/25/17 08:20 12/25/17 14:27 12/26/17 11:30 12/27/17 07:10 Sodium Level 135 MEQ/L (136-145) 130 MEQ/L (136-145) Chloride Level 88 MEQ/L (98-107) 86 MEQ/L (98-107) 92 MEQ/L (98-107) Carbon Dioxide Level 42.5 MEQ/L (21.0-32.0) 37.8 MEQ/L (21.0-32.0) 41.3 MEQ/L (21.0-32.0) Estimat Glomerular Filtration Rate 87 ML/MIN (>89) 68 ML/MIN (>89) Blood Gas HCO3 43 mmol/L (22-26) Blood Gas Base Excess 16.9 mmol/L (-2-2) Blood Gas Oxygen Saturation 84 % (90-100) Arterial Blood pH 7.35 (7.380-7.420) Arterial Blood Partial Pressure CO2 80 mmHg (38-42) Arterial Blood Partial Pressure O2 59 mmHg (61-120) Blood Gas Hemoglobin 10.1 G/DL (12.0-16.0) Random Glucose 366 MG/DL (74-106) 145 MG/DL (74-106) Prothrombin Time 12.2 SEC (9.8-11.6) Anion Gap 3 MEQ/L (5-15) Imaging Last Impressions Chest X-Ray 12/27/17 0600 Signed Impressions: Service Date/Time: Wednesday, December 27, 2017 06:20 - CONCLUSION: Underinflation with mild bibasilar opacity representing either atelectasis or mild consolidation. Jacob Watson MD CT Angiography 12/25/17 1302 Signed Impressions: Service Date/Time: Monday, December 25, 2017 14:54 - CONCLUSION: No evidence of pulmonary embolism. Multiple small bilateral pulmonary nodules. Mild prominence of hilar and mediastinal lymph nodes Mild diffuse parenchymal lung disease Jacob Jimenez MD PE at Discharge GENERAL: AA male, sitting on side of bed. pleasant ENT: Nose without drainage. Airway patent. NECK: Trachea midline. CARDIOVASCULAR: Regular rate and rhythm without murmurs RESPIRATORY: Clear to auscultation. Breath sounds equal bilaterally. No wheezes GASTROINTESTINAL: Abdomen soft, non-tender, nondistended. No guarding. MUSCULOSKELETAL: Extremities with improving +2 edema NEUROLOGICAL: Awake and alert. Motor and sensory grossly within normal limits. Normal speech. Mild tremors Hospital Course 62-year-old man with Congestive heart failure exacerbation of unknown type/ nonischemic cardiomyopathy. Improving Chest x-ray with slight cardiomyopathy elevated troponin likely secondary to CHF exacerbation, cardiology following Continue with Lasix 40 mg QD, MICHAEL inhibitor, Aldactone, strict I's and O's, CHF education, low sodium diet and fluid restriction at 1500ml/hr. Monitor BMP 2-D echo report showed EF 60-65% however also shows RV dysfx, enlargement, increased PAP. COPD exac, Cor pulmonale and possible KI. Improved. Continue Levaquin, nebulization, steroids and BiPAP. Will need outpatient sleep study for CPAP. PFTs per pulmonary Abnormal CTA with no PE but multiple small bilateral pulmonary nodules with mild prominence of the hilar and mediastinal lymph nodes and mild diffuse parenchymal lung disease. Results discussed with patient follow-up with pulmonary Tremors likely adverse reaction from bed to agonist. Improved. Decrease nebulizer dose. Hyperkalemia resolved. Diabetes type 2. Uncontrolled 2/2 steroids. Levemir 10 units x 1. restart Janumet on outpatient medication and on insulin sliding scale Hemoglobin A1c 7.6. Hypertension, hyperlipidemia on outpatient medications. Normochromic normocytic anemia H&H stable Recommend outpatient follow-up for preventative colonoscopy Chronic pain syndrome on Percocet DVT prophylaxis: Lovenox Pt Condition on Discharge: Stable Discharge Disposition: Disch w/ Home Health Serv Discharge Time: > 30 minutes Discharge Instructions DIET: Follow Instructions for: Heart Healthy Diet, Diabetic Diet Activities you can perform: Regular-No Restrictions, Weight Bearing as Adam Activities to Avoid: Driving Follow up Referrals: Cardiology - 1 Week PCP Follow-up - 1 Week Pulmonology - 1 Week SNF/[facility]/ with [facility]: [id number] New Medications: Albuterol 18 GM Inh (Ventolin Hfa 18 GM Inh) 90 Mcg/Act Aer 2 PUFF INH QID for Breathing Treatment, #1 INHALER 0 Refills Levofloxacin (Levaquin) 750 Mg Tablet 750 MG PO DAILY for Infection, #4 TAB 0 Refills Prednisone (Prednisone) 20 Mg Tab 20 MG PO DIRECTED for Inflammation, #11 TAB 0 Refills 40 MG twice a day x 3 days, then 20 MG daily x 3 days, then 10 MG daily x 3 days Walker with Front Wheels (Walker with Front Wheels) 1 Mis Mis EA .XX DIRECTED, #1 0 Refills Gabapentin (Neurontin) 400 Mg Cap 800 MG PO TID for Pain Management, #180 CAP Spironolactone (Aldactone) 25 Mg Tab 25 MG PO BID@09,18 for Prevent Heart Failure, #60 TAB [Budeson-Formot 160-4.5 Mcg Inh] () 60 PUFF AERO 2 PUFF INH Q12HR for Breathing Treatment, #1 INHALER Changed Medications: Furosemide (Lasix) 20 Mg Tab 40 MG PO DAILY for Prevent Heart Failure, #60 TAB 0 Refills (Changed from: 20 MG ; 30) Continued Medications: Amlodipine (Norvasc) 10 Mg Tab 10 MG PO DAILY for Blood Pressure Management, #30 TAB 0 Refills (This prescription has been renewed) Aspirin (Aspirin) 81 Mg Chew 81 MG PO DAILY, TAB 0 Refills Ipratropium HFA 12.9 GM Inh (Atrovent HFA 12.9 GM Inh) 17 Mcg/Actuation Aer 2 PUFF INH TID, #1 INHALER 0 Refills Lisinopril (Lisinopril) 20 Mg Tab 20 MG PO DAILY, #30 TAB 0 Refills (This prescription has been renewed) Lovastatin (Lovastatin) 40 Mg Tab 40 MG PO DAILY for Cholesterol Management, #30 TAB 0 Refills Oxycodone-Acetaminophen (Percocet) 10-325 mg Tab 1 TAB PO Q6H PRN for PAIN, TAB 0 Refills Ranitidine (Zantac) 150 Mg Tab 150 MG PO BID for Reduce Stomach Acid, #60 TAB 0 Refills Sitagliptin-Metformin ER (Janumet Xr) 100-1,000 Mg Tab 1 TAB PO DAILY for Blood Sugar Management, #30 TAB 0 Refills Discontinued Medications: Gabapentin (Gabapentin) 300 Mg Cap 300 MG PO QID, #90 CAP 0 Refills Isauro Ramos MD Dec 27, 2017 13:01
[2017-12-27] MEDS: RESP: ALBUTEROL 0.63 MG/3 ML NEB (SCH) NEB (15:08)
--- NOTE | 2017-12-27 16:02 | PD.CARD.PN ---
Subjective Subjective Remarks No CP, SOB and edema significantly improved Objective Vital Signs / I&O Vital Signs Date Time Temp Pulse Resp B/P (MAP) Pulse Ox O2 Delivery O2 Flow Rate FiO2 12/27/17 12:01 97.9 92 20 128/76 (93) 94 12/27/17 08:40 88 12/27/17 07:51 98.2 93 20 138/82 (100) 92 12/27/17 07:48 96 Nasal Cannula 2.00 12/27/17 07:45 96 Nasal Cannula 2.00 12/27/17 04:00 98.3 85 20 118/78 (91) 94 12/27/17 00:10 98.0 93 20 110/70 (83) 92 12/27/17 00:00 98.0 95 18 112/71 (85) 89 12/26/17 20:00 98.4 106 18 124/64 (84) 93 12/26/17 19:45 Nasal Cannula 2.00 12/26/17 16:21 98 I/O 12/26/17 12/26/17 12/26/17 12/27/17 12/27/17 12/27/17 07:00 15:00 23:00 07:00 15:00 23:00 Intake Total 237 ml 960 ml Output Total 300 ml 1050 ml 3000 ml 1100 ml 550 ml Balance -63 ml -1050 ml -2040 ml -1100 ml -550 ml Intake Oral 237 ml 960 ml Output Urine Total 300 ml 1050 ml 3000 ml 1100 ml 550 ml Physical Exam GENERAL: In NAD. SKIN: Warm and dry. HEAD: Normocephalic. EYES: No scleral icterus. No injection or drainage. NECK: Supple, trachea midline. No JVD or lymphadenopathy. CARDIOVASCULAR: Regular rate and rhythm without murmurs, gallops, or rubs. RESPIRATORY: Breath sounds decreased bilaterally. No accessory muscle use. GASTROINTESTINAL: Abdomen soft, non-tender, nondistended. MUSCULOSKELETAL: No cyanosis, 1+ LE edema. Laboratory Laboratory Tests Test 12/27/17 07:10 Prothrombin Time 12.2 SEC Prothromb Time International Ratio 1.2 RATIO Activated Partial Thromboplast Time 26.0 SEC Blood Urea Nitrogen 14 MG/DL Creatinine 0.98 MG/DL Random Glucose 145 MG/DL Calcium Level 9.0 MG/DL Magnesium Level 2.4 MG/DL Sodium Level 136 MEQ/L Potassium Level 4.5 MEQ/L Chloride Level 92 MEQ/L Carbon Dioxide Level 41.3 MEQ/L Anion Gap 3 MEQ/L Estimat Glomerular Filtration Rate 94 ML/MIN Imaging Last 24 hours Impressions Chest X-Ray 12/27/17 0600 Signed Impressions: Service Date/Time: Wednesday, December 27, 2017 06:20 - CONCLUSION: Underinflation with mild bibasilar opacity representing either atelectasis or mild consolidation. Jacob Watson MD Assessment and Plan Problem List: (1) CHF (congestive heart failure) ICD Codes: I50.9 - Heart failure, unspecified Status: Acute (2) Benign hypertension ICD Codes: I10 - Essential (primary) hypertension (3) Diabetes mellitus, type 2 ICD Codes: E11.9 - Type 2 diabetes mellitus without complications (4) Hyperlipidemia ICD Codes: E78.5 - Hyperlipidemia, unspecified (5) Troponin level elevated ICD Codes: R74.8 - Abnormal levels of other serum enzymes Status: Acute (6) COPD (chronic obstructive pulmonary disease) ICD Codes: J44.9 - Chronic obstructive pulmonary disease, unspecified Assessment and Plan Dx w COPD exacerbation, continue pulm eval and mgmt. Echo w nl LV systolic fx, RV dilatation and hypokinesis. Continue current program including aggressive diuresis, overall improvement. Troponin slightly elevated but not trending. DC home. Will schedule f/u appt in our office after discharge. D/w pt and . Problem Qualifiers (1) CHF (congestive heart failure): Qualified Codes: I50.9 - Heart failure, unspecified Sherry Pelaez MD Dec 27, 2017 16:02
== END 2017-12-27 15:09 | disposition home health service (06) | DRG 292 ==
LOC: NEPC 21:49 → NEDA 12-20 04:06 → OBSVTOIN 12-20 05:16 → NEDH 12-20 09:25 → N05B 12-20 14:17
PROVIDERS: ADMIT Internal Medicine; ATTEND Internal Medicine
DX: I11.0 Hypertensive heart disease with heart failure (principal); J44.1 Chronic obstructive pulmonary disease with (acute) exacerbation; E11.42 Type 2 diabetes mellitus with diabetic polyneuropathy; I42.9 Cardiomyopathy, unspecified; J98.11 Atelectasis; Z99.81 Dependence on supplemental oxygen; I27.81 Cor pulmonale (chronic); I50.9 Heart failure, unspecified; E87.5 Hyperkalemia; E11.65 Type 2 diabetes mellitus with hyperglycemia; E78.5 Hyperlipidemia, unspecified; G89.4 Chronic pain syndrome; D64.9 Anemia, unspecified; E66.9 Obesity, unspecified; K21.9 Gastro-esophageal reflux disease without esophagitis; M54.9 Dorsalgia, unspecified; T38.0X5A Adverse effect of glucocorticoids and synthetic analogues, initial encounter; M19.90 Unspecified osteoarthritis, unspecified site; R25.1 Tremor, unspecified; G47.33 Obstructive sleep apnea (adult) (pediatric); R91.8 Other nonspecific abnormal finding of lung field; R74.8 Abnormal levels of other serum enzymes; Z68.37 Body mass index [BMI] 37.0-37.9, adult; Z91.14 Patient's other noncompliance with medication regimen; Z79.84 Long term (current) use of oral hypoglycemic drugs
CPT/HCPCS: 36600; 71045; 71046; 71275; 80048; 80053; 80061; 81001; 82550; 82805; 82948; 83036; 83735; 83880; 84132; 84484; 85025; 85610; 85730; 93005; 93306; 94640; 94664; J1815; J1940; J1956; J2920; J7613; J7644; Q9967